=== PATIENT | female | born 1975 | race Caucasian/White ===

== ENCOUNTER 2019-09-24 08:48 | Emergency (ER) | payer MEDICAID ==
[2019-09-24] MEDS ORDERED: Sodium Chloride 0.9% 1,000 ML IV SCH (09:15)
[2019-09-24] MEDS ORDERED: Famotidine 20 MG/2 ML SDV IVPUSH ONE (09:16)
--- NOTE | 2019-09-24 09:20 | EDM.PDOC ---
<Michelle Lund - Last Filed: 09/24/19 10:44> ED HPI GENERAL MEDICAL PROBLEM - General Chief Complaint: Abdominal Pain Stated Complaint: STOMACH PAIN Time Seen by Provider: 09/24/19 09:03 Source of Information: Reports: Patient History Limitations: Reports: No Limitations - History of Present Illness INITIAL COMMENTS - FREE TEXT/NARRATIVE: Pt is a 44 year old female who presents with epigastric pain for the last week, as well as constipation and bright red blood in her stool. She has vomited "a couple times" in the last week but has been able to keep food and liquids down. She states that she fell about a month ago and injured her knee and has been taking ibuprofen 800mg QID since that time for the pain. She has been having intermittent heart burn for which she has been using Tums. Additionally, she has been having diffuculty with having bowel movements for which she took a Dulcolax yesterday. She states that she was able to have a "small hard" bowel movement yesterday, but she was concerned because there was bright red blood on the toilet paper when she wiped. She does have an external hemorrhoid that she is aware of. She has a family hx of colon cancer, so she is concerned about this. She had a screening colonoscopy at 39 years old and has an appt on Sunday with Madeline Melendez NP to establish care and order repeat screening. Denies hx of GI bleeds, black stools, and hematemesis. Upper Abdomen Pain Score (Numeric/FACES): 5 - Related Data Allergies Allergy/AdvReac Type Severity Reaction Status Date / Time No Known Allergies Allergy Verified 09/24/19 08:59 Home Meds: Home Meds . 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: Musculoskeletal History: Reports: Back Pain, Chronic Psychiatric History: Reports: Anxiety Endocrine/Metabolic History: Reports: Obesity/BMI 30+ Hematologic History: Reports: None Immunologic History: Reports: None Oncologic (Cancer) History: Reports: None Dermatologic History: Reports: None - Infectious Disease History Infectious Disease History: Reports: None - Past Surgical History Head Surgeries/Procedures: Reports: None Female Surgical History: Reports: Section Neurological Surgical History: Reports: Lumbar Spine Social & Family History - Tobacco Use Smoking Status *Q: Current Every Day Smoker Years of Tobacco use: 30 Packs/Tins Daily: 1 - Caffeine Use Caffeine Use: Reports: Coffee, Tea - Recreational Drug Use Recreational Drug Use: No ED ROS GENERAL - Review of Systems Review Of Systems: See Below Constitutional: Reports: No Symptoms. Denies: Fever, Chills HEENT: Reports: No Symptoms Respiratory: Reports: No Symptoms Cardiovascular: Reports: No Symptoms Endocrine: Reports: No Symptoms GI/Abdominal: Reports: Abdominal Pain, Bloody Stool, Constipation, Nausea, Vomiting, Other (heart burn). Denies: Black Stool, Hematemesis, Hematochezia, Melena : Reports: No Symptoms Musculoskeletal: Reports: No Symptoms Skin: Reports: No Symptoms Neurological: Reports: No Symptoms Psychiatric: Reports: No Symptoms Hematologic/Lymphatic: Reports: No Symptoms Immunologic: Reports: No Symptoms ED EXAM, GI/ABD - Physical Exam Exam: See Below Exam Limited By: No Limitations General Appearance: Alert, WD/WN, No Apparent Distress Head: Atraumatic, Normocephalic Respiratory/Chest: No Respiratory Distress, Lungs Clear, Normal Breath Sounds Cardiovascular: Normal Peripheral Pulses, Regular Rate, Rhythm, No Edema GI/Abdominal Exam: Normal Bowel Sounds, Soft, Tender (generalized throughout, but worse in the epigastrum). No: No Organomegaly, No Mass Neurological: Alert, Oriented, Normal Cognition Psychiatric: Normal Affect, Normal Mood Skin Exam: Warm, Dry, Intact Course - Vital Signs Last Recorded V/S: Last Vital Signs Temp 97 F 09/24/19 08:55 Pulse 94 09/24/19 08:55 Resp 16 09/24/19 08:55 BP 131/85 09/24/19 08:55 Pulse Ox 98 09/24/19 08:55 - Orders/Labs/Meds Orders: Active Orders 24 hr Category Date Time Status Influenza Vaccine Charge [RC] .DISCHARGE Care 09/24/19 09:01 Active Sodium Chloride 0.9% [Normal Saline] 1,000 ml Med 09/24/19 09:15 Active IV ASDIRECTED Medication Orders Sodium Chloride (Normal Saline) 1,000 mls @ 150 mls/hr IV ASDIRECTED JEAN-PIERRE Last Admin: 09/24/19 09:23 Dose: 150 mls/hr Labs: Laboratory Tests 09/24/19 09/24/19 09/24/19 Range/Units 09:25 09:25 09:25 WBC 6.87 (3.98-10.04) K/mm3 RBC 5.00 (3.98-5.22) M/mm3 Hgb 12.1 (11.2-15.7) gm/dl Hct 38.6 (34.1-44.9) % MCV 77.2 L (79.4-94.8) fl MCH 24.2 L (25.6-32.2) pg MCHC 31.3 L (32.2-35.5) g/dl RDW Std Deviation 53.9 H (36.4-46.3) fL Plt Count 373 H (182-369) K/mm3 MPV 9.2 L (9.4-12.3) fl Neut % (Auto) 52.6 (34.0-71.1) % Lymph % (Auto) 33.5 (19.3-51.7) % [place] % (Auto) 10.9 (4.7-12.5) % Eos % (Auto) 2.6 (0.7-5.8) Baso % (Auto) 0.4 (0.1-1.2) % Neut # (Auto) 3.61 (1.56-6.13) K/mm3 Lymph # (Auto) 2.30 (1.18-3.74) K/mm3 [place] # (Auto) 0.75 H (0.24-0.36) K/mm3 Eos # (Auto) 0.18 (0.04-0.36) K/mm3 Baso # (Auto) 0.03 (0.01-0.08) K/mm3 Sodium 140 (136-145) mEq/L Potassium 3.9 (3.5-5.1) mEq/L Chloride 104 (98-107) mEq/L Carbon Dioxide 26 (21-32) mEq/L Anion Gap 13.9 (5-15) BUN 14 (7-18) mg/dL Creatinine 0.7 (0.55-1.02) mg/dL Est Cr Clr Drug Dosing 91.32 mL/min Estimated GFR (MDRD) > 60 (>60) mL/min BUN/Creatinine Ratio 20.0 H (14-18) Glucose 103 (74-106) mg/dL Calcium 9.2 (8.5-10.1) mg/dL Total Bilirubin 0.3 (0.2-1.0) mg/dL AST 20 (15-37) U/L ALT 26 (14-59) U/L Alkaline Phosphatase 69 (46-116) U/L Total Protein 6.8 (6.4-8.2) g/dl Albumin 3.4 (3.4-5.0) g/dl Globulin 3.4 gm/dL Albumin/Globulin Ratio 1.0 (1-2) Lipase 95 (73-393) U/L Meds: Medications Generic Name Dose Route Start Last Admin Trade Name Freq PRN Reason Stop Dose Admin Sodium Chloride 1,000 mls @ 150 mls/hr 09/24/19 09:15 09/24/19 09:23 Normal Saline IV 150 mls/hr ASDIRECTED JEAN-PIERRE Administration Discontinued Medications Generic Name Dose Route Start Last Admin Trade Name Freq PRN Reason Stop Dose Admin Famotidine 20 mg 09/24/19 09:16 09/24/19 09:25 Pepcid IVPUSH 09/24/19 09:17 20 mg ONETIME ONE Administration Hydromorphone HCl 0.5 mg 09/24/19 09:30 09/24/19 09:50 Dilaudid IVPUSH 09/24/19 09:31 0.5 mg ONETIME ONE Administration Influenza Virus Vaccine 60 mcg 09/24/19 09:45 09/24/19 10:32 Fluzone Quad [id number] Syringe IM 09/24/19 09:46 60 mcg .ONCE ONE Administration Magnesium Citrate 296 ml 09/24/19 10:11 09/24/19 10:32 Citrate Of Magnesia PO 09/24/19 10:12 296 ml ONETIME ONE Administration Ondansetron HCl 4 mg 09/24/19 09:30 09/24/19 09:50 Zofran IVPUSH 09/24/19 09:31 4 mg ONETIME ONE Administration - Re-Assessments/Exams Free Text/Narrative Re-Assessment/Exam: 09/24/19 10:40 I ordered an IV with IVF, dilaudid, and zofran. I ordered a 2V abdomen xray to look for constipation and signs of obstruction, as well as labs including a cbc, cmp, and lipase. Free Text/Narrative Re-Assessment/Exam: 09/24/19 10:15 The patients labs are grossly unremarkable. Her xray shows a considerably amount of stool in the transverse and decending colon. No visible air-fluid levels or dilated loops of bowel are noted. She verbalized relief of pain and nausea with the dilaudid and zofran. I recommend that she stop the ibuprofen and start a daily omeprazole 20mg. I will also send her home with mag citrate for the constipation. She has an appointment to establish care with Madeline Melendez NP on Sunday. I encouraged her to keep this appointment to follow-up and definitely return if her symptoms fail to improve or worsen. Departure - Departure Time of Disposition: :11 Disposition: Home, Self-Care 01 Condition: Fair Clinical Impression: Gastritis, Constipation - Discharge Information *PRESCRIPTION DRUG MONITORING PROGRAM REVIEWED*: Not Applicable *COPY OF PRESCRIPTION DRUG MONITORING REPORT IN PATIENT KP: Not Applicable Instructions: Gastritis, Adult, [id number], Constipation, Adult Referrals: Jocelin Melendez NP [Ordering Only Provider] - Forms: ED Department Discharge Additional Instructions: You were seen in the emergency department today for abdominal pain. Your workup included blood work, as well as an abdomen xray. Your laboratory results were unremarkable. The abdomen xray showed a considerable amount of stool in colon. At this time we would recommend that you stop using ibuprofen and use tylenol as needed for pain; however, be sure not to exceed 4000 mg per day of tylenol. We also recommend that you start taking Prilosec 20 mg daily in the morning. This can be purchased over the counter. You have been provided a bottle of magnesium citirate for your constipation. We recommend that you take half that bottle when you get home and wait 4 hours for results. If this fails to produce a large bowel movement, take the second half of the bottle. This medication should result in a number of bowel movements, some of which may be loose. Start taking an over the counter Colace daily. You may also use Miralax as needed to acheive regular bowel movements. It is also important to ensure that you increase your fluid and fiber intake. Follow-up with your primary care provider as scheduled this Sunday. If your symptoms should worsen, please return to the ER. - My Orders Last 24 Hours: My Active Orders 09/24/19 09:01 Influenza Vaccine Charge [RC] .DISCHARGE - Assessment/Plan Last 24 Hours: My Active Orders 09/24/19 09:01 Influenza Vaccine Charge [RC] .DISCHARGE <Ean Welsh - Last Filed: 09/24/19 10:59> Course - Re-Assessments/Exams Free Text/Narrative Re-Assessment/Exam: 09/24/19 10:58 I have also examined and interviewed patient, reviewed labs and Xrays. I agree with hx, exam, findings and plan as documented by EDWARD Ragsdale.
[2019-09-24] MEDS ORDERED: Ondansetron 4 MG/2 ML SDV IVPUSH ONE (09:30)
[2019-09-24] MEDS ORDERED: HYDROmorphone 0.5 MG/0.5 ML Syringe IVPUSH ONE (09:30)
[2019-09-24] MEDS ORDERED: FLU Vacc QS2019-20(6MOS+)/PF 60 MCG/0.5 ML SYRINGE IM ONE (09:45)
[2019-09-24] MEDS ORDERED: Magnesium Citrate Solution 296 ML Bottle PO ONE (10:11)
--- NOTE | 2019-09-24 10:40 | CR ---
Abdomen: Supine and upright views of the abdomen were obtained. Comparison: No prior abdominal x-ray. Bowel gas pattern is normal. No abnormal calcifications or soft tissue abnormality is seen. Bony structures are unremarkable. No free air is seen. Impression: 1. Nothing acute is appreciated on two-view abdominal x-ray. Diagnostic code #1
== END 2019-09-24 10:40 | disposition home or self-care (01) ==
LOC: JD.ED 08:48
DX: K29.70 Gastritis, unspecified, without bleeding (principal); K59.00 Constipation, unspecified; E66.9 Obesity, unspecified; I11.0 Hypertensive heart disease with heart failure; I50.9 Heart failure, unspecified; F17.210 Nicotine dependence, cigarettes, uncomplicated; Z68.33 Body mass index [BMI] 33.0-33.9, adult; Z23 Encounter for immunization
CPT/HCPCS: 36415; 74019; 80053; 83690; 85025; 90471; 90686; 96361; 96374; 96375; 99284; A9270; J1170; J2405; J3490; J7040; 99283

== ENCOUNTER 2019-11-26 09:34 | Day surgery (SDC) | payer MEDICAID ==
[~2019-11-26 09:34] MED LIST: Albuterol 0.083% 2.5 MG/3 ML Neb Soln NEB PRN; Lactated Ringers 1,000 ML IV SCH; Lidocaine 1%/Sod Bicarbonate in NS 8.4% 1 ML Syringe IDERM PRN; Sodium Chloride 0.9% 10 ML Syringe FLUSH PRN
[2019-11-26] MEDS ORDERED: Lidocaine 1% 4 ML ONE (10:10)
[2019-11-26] MEDS ORDERED: Propofol 200 MG/20 ML SDV ONE ×4 (10:10→12:17)
--- NOTE | 2019-11-26 10:26 | PCM.PREANE ---
Preanesthetic Assessment - Procedure Proposed Procedure: EGD Colonoscopy - Anesthesia/Transfusion/Family Hx Anesthesia History: Prior Anesthesia Without Reaction Family History of Anesthesia Reaction: No - Review of Systems General: No Symptoms Pulmonary: Cough (Chronic cough, smoker 1ppd x 30 years) Cardiovascular: No Symptoms Gastrointestinal: No Symptoms Neurological: No Symptoms Other: Reports: None (Morbid Obesity BMI 42), Depression, Anxiety - Physical Assessment NPO Status Date: 11/25/19 NPO Status Time: 20:30 Vital Signs: Last Vital Signs Temp 36.8 C 11/26/19 09:45 Pulse 73 11/26/19 09:45 Resp 20 11/26/19 09:45 BP 120/87 11/26/19 09:45 Pulse Ox 96 11/26/19 09:45 Height: 1.68 m Weight: 111.584 kg ASA Class: 3 Mental Status: Alert & Oriented x3 Airway Class: Mallampati = 3 Dentition: Reports: Normal Dentition Thyro-Mental Finger Breadths: 3 Mouth Opening Finger Breadths: 3 ROM/Head Extension: Full Lungs: Clear to Auscultation, Normal Respiratory Effort Cardiovascular: Regular Rate, Regular Rhythm - Allergies Allergies/Adverse Reactions: Allergies Allergy/AdvReac Type Severity Reaction Status Date / Time gabapentin Allergy Confusion Verified 11/25/19 14:36 - Acknowledgements Anesthesia Type Planned: MAC Pt an Appropriate Candidate for the Planned Anesthesia: Yes Alternatives and Risks of Anesthesia Discussed w Pt/Guardian: Yes Pt/Guardian Understands and Agrees with Anesthesia Plan: Yes PreAnesthesia Questionnaire HEENT History: Reports: Impaired Vision Cardiovascular History: Reports: Heart Failure, Hypertension Respiratory History: Reports: None Gastrointestinal History: Reports: Chronic Constipation, Gastritis Genitourinary History: Reports: None 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, Musculoskeletal History: Reports: Arthritis, Back Pain, Chronic Neurological History: Reports: None Psychiatric History: Reports: Anxiety Endocrine/Metabolic History: Reports: Obesity/BMI 30+ Hematologic History: Reports: None Immunologic History: Reports: None Oncologic (Cancer) History: Reports: None Dermatologic History: Reports: None - Infectious Disease History Infectious Disease History: Reports: None - Past Surgical History Head Surgeries/Procedures: Reports: None HEENT Surgical History: Reports: None Cardiovascular Surgical History: Reports: None GI Surgical History: Reports: Colonoscopy, EGD Female Surgical History: Reports: Section Male Surgical History: Reports: None Neurological Surgical History: Reports: Lumbar Spine Oncologic Surgical History: Reports: None Dermatological Surgical History: Reports: None - SUBSTANCE USE Smoking Status *Q: Current Every Day Smoker Recreational Drug Use History: No - HOME MEDS Home Medications: Home Meds ALPRAZolam [Xanax] 0.25 mg PO BID PRN 11/25/19 [History] Lubiprostone [Amitiza] 24 mcg PO BID 11/25/19 [History] Pregabalin [Lyrica] 150 mg PO BID 11/25/19 [History] Sertraline HCl [Zoloft] 50 mg PO DAILY 11/25/19 [History] - CURRENT (IN HOUSE) MEDS Current Meds: Current Medications Albuterol (Proventil Neb Soln) 2.5 mg NEB ONETIME PRN PRN Reason: bronchodilation Lactated Ringer's (Ringers, Lactated) 1,000 mls @ 125 mls/hr IV ASDIRECTED JEAN-PIERRE Last Admin: 11/26/19 10:00 Dose: 125 mls/hr Lidocaine/Sodium Bicarbonate (Buffered Lidocaine 1% In Ns 8.4%) 0.25 ml IDERM ONETIME PRN PRN Reason: Prior to IV Start Last Admin: 11/26/19 09:59 Dose: 0.25 ml Sodium Chloride (Saline Flush) 10 ml FLUSH ASDIRECTED PRN PRN Reason: Keep Vein Open Discontinued Medications Lidocaine HCl (Xylocaine-Mpf 1%) Confirm Administered Dose 4 mls @ as directed .ROUTE .STK-MED ONE Stop: 11/26/19 10:11 Propofol (Diprivan 20 Ml) Confirm Administered Dose 200 mg .ROUTE .STK-MED ONE Stop: 11/26/19 10:11
[2019-11-26] MEDS ORDERED: Midazolam 1 MG/ML 2 ML SDV ONE (11:48)
[2019-11-26] MEDS ORDERED: fentaNYL 100 MCG/2 ML SDV ONE (11:53)
--- NOTE | 2019-11-26 12:40 | PCM48HPAN ---
Post Anesthesia Note - EVALUATION WITHIN 48HRS OF ANESTHETIC Vital Signs in Normal Range: Yes Patient Participated in Evaluation: Yes Respiratory Function Stable: Yes Airway Patent: Yes Cardiovascular Function Stable: Yes Hydration Status Stable: Yes Pain Control Satisfactory: Yes Nausea and Vomiting Control Satisfactory: Yes Mental Status Recovered: Yes Vital Signs: Last Vital Signs Temp 36.8 C 11/26/19 09:45 Pulse 73 11/26/19 09:45 Resp 20 11/26/19 09:45 BP 120/87 11/26/19 09:45 Pulse Ox 96 11/26/19 10:32
--- NOTE | 2019-11-26 12:44 | PCM.OPNOTE ---
- General Post-Op/Procedure Note Date of Surgery/Procedure: 11/26/19 Operative Procedure(s): EGD and colonoscopy Findings: 1. gastritis 2. Duodenitis 3. Ascending colon polyp 4. Sigmoid polyp x2 Pre Op Diagnosis: anemia Post-Op Diagnosis: same Anesthesia Technique: VON Primary Surgeon: Nia Rosenbaum Anesthesia Provider: Shayy Merlos Pathology: 1. Duodenal biopsy 2. Gastric antrum 3. Ascending colon polyp 4. Sigmoid polyp x2 Fluid Replacement, Intraop: 1,400 EBL in mLs: 0 Complications: none apparent Condition: Good
--- NOTE | 2019-11-26 12:51 | PCM.PRNOTE ---
- Free Text/Narrative Note: Operative Report Date of Procedure: November 26, 2019 Pre Op Diagnosis: Anemia Post-Op Diagnosis: Anemia Operative Procedures: 1. EGD with biopsy 2. Colonoscopy to the cecum with polypectomy Primary Surgeon: Nia Rosenbaum MD Anesthesia Provider: Shayy Merlos CRNA Anesthesia Technique: MAC IV Fluid Replacement, Intraop: 1400cc crystalloid Output, Urine Amount: 0cc EBL in mLs: 0cc Findings: 1. gastritis 2. Duodenitis 3. Ascending colon polyp 4. Sigmoid polyp x2 Specimens: 1. Duodenal biopsy 2. Gastric antrum 3. Ascending colon polyp 4. Sigmoid polyp x2 Drain/Tubes: None Indication: The patient is a 44-year-old lady who presented to the clinic with anemia. The patient was consented for a diagnostic EGD and colonoscopy. Risks of bleeding, and perforation were discussed, and the patient agreed to the risks and wished to proceed. Description of the procedure: The patient was taken back to the endoscopy suite, and placed in the left lateral decubitus position. Local anesthetic to the oropharynx was administered , and a bite block was placed. The patient was sedated with MAC anesthesia. The Olympus video endoscope was inserted into the oropharynx and guided under direct vision into the esophagus, stomach, and duodenum. The gastric antrum was inspected and cold biopsy forceps were used to take tissue samples for H. pylori. There was linear erythema in this area consistent with gastritis. The duodenal bulb and second portion of the duodenum showed some friability consistent with duodenitis. Biopsies were taken with cold biopsy forceps. The scope was withdrawn to the stomach and retroflexed. There was bilious fluid present in the stomach, which was aspirated. No erosions or ulcers were noted. The scope was withdrawn to the esophagus. No Barretts esophagus changes were noted. The endoscope was then withdrawn Next, anorectal examination was performed. No lesions, masses or hemorrhoids were noted externally or on palpation. The scope was placed into the rectum and advanced to cecum. Upon reaching the cecum, and the patients cecum was entered. There was a normal tortuosity of the colon. The ileocecal valve was well visualized and the appendiceal orifice identified. At this point, the scope was slowly withdrawn, paying attention to the mucosa. The patient had adequate bowel prep, 75-80% of the mucosa was visible which improved with washing and suctioning. 3 small flat polyps were noted in the colon, one in the ascending colon and 2 in the sigmoid colon. These were removed with cold biopsy forceps. In the rectum, scope was retroflexed and some normal hemorrhoidal tissue was noted. The scope was placed back in the lumen and excess air was aspirated. The scope was removed. The patient tolerated the procedure very well. Complications: None apparent Condition: The patient was transported to PACU in stable condition. Nia Rosenbaum MD General Surgery
== END 2019-11-26 13:18 | disposition home or self-care (01) ==
LOC: JD.SDS 09:34
PROVIDERS: ATTEND Surgery
DX: D64.9 Anemia, unspecified (principal); D12.2 Benign neoplasm of ascending colon; D12.5 Benign neoplasm of sigmoid colon; K64.9 Unspecified hemorrhoids; K31.89 Other diseases of stomach and duodenum; K29.80 Duodenitis without bleeding; I11.0 Hypertensive heart disease with heart failure; I50.9 Heart failure, unspecified; F41.9 Anxiety disorder, unspecified; F32.9 Major depressive disorder, single episode, unspecified; M19.90 Unspecified osteoarthritis, unspecified site; M17.0 Bilateral primary osteoarthritis of knee; M47.816 Spondylosis without myelopathy or radiculopathy, lumbar region; F17.210 Nicotine dependence, cigarettes, uncomplicated; E66.01 Morbid (severe) obesity due to excess calories; Z68.41 Body mass index [BMI] 40.0-44.9, adult; Z79.899 Other long term (current) drug therapy; Z88.8 Allergy status to other drugs, medicaments and biological substances; Z83.71 Family history of colonic polyps; Z86.010 Personal history of colon polyps
CPT/HCPCS: 43239; 45380; 94640; J2001; J2250; J2704; J3010; J7120; 00813

== ENCOUNTER 2019-12-16 12:28 | Emergency (ER) | payer MEDICAID ==
--- NOTE | 2019-12-16 13:00 | EDM.PDOC ---
ED HPI GENERAL MEDICAL PROBLEM - General Chief Complaint: Back Pain or Injury Stated Complaint: BACK INJURY/SLIPPED ON ICE 2WEEKS AGO Time Seen by Provider: 12/16/19 12:52 - History of Present Illness INITIAL COMMENTS - FREE TEXT/NARRATIVE: 44-year-old female presents the emergency room with low back pain. 2 weeks ago the patient fell getting out of her truck she slipped on some ice and her right hip hit the step and then she fell to the concrete landing mostly on her right side. She is ambulatory just has back pain she denies any pain going down her legs she has no loss of bowel or bladder control.. She has no numbness or tingling in her extremities. She does have sciatica that bothers her from time to time but this is much different. Patient denies any abdominal pain no nausea vomiting or change in bowel habits. Denies any burning or frequency with urination Lower Back Pain Score (Numeric/FACES): 8 - Related Data Allergies Allergy/AdvReac Type Severity Reaction Status Date / Time gabapentin Allergy Confusion Verified 12/16/19 12:45 Home Meds: Home Meds ALPRAZolam [Xanax] 0.25 mg PO BID PRN 11/25/19 [History] Lubiprostone [Amitiza] 24 mcg PO BID 11/25/19 [History] Pregabalin [Lyrica] 150 mg PO BID 11/25/19 [History] Sertraline HCl [Zoloft] 50 mg PO DAILY 11/25/19 [History] Cyclobenzaprine [Flexeril] 10 mg PO ASDIRECTED #15 tab 12/16/19 [Rx] Naproxen 500 mg PO Q12H #30 tablet 12/16/19 [Rx] Past Medical History HEENT History: Reports: Impaired Vision Cardiovascular History: Reports: Heart Failure, Hypertension Respiratory History: Reports: None Gastrointestinal History: Reports: Chronic Constipation, Gastritis Genitourinary History: Reports: None 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: Musculoskeletal History: Reports: Arthritis, Back Pain, Chronic Neurological History: Reports: None Psychiatric History: Reports: Anxiety, Dementia Endocrine/Metabolic History: Reports: Obesity/BMI 30+ Hematologic History: Reports: None Immunologic History: Reports: None Oncologic (Cancer) History: Reports: None Dermatologic History: Reports: None - Infectious Disease History Infectious Disease History: Reports: None - Past Surgical History Head Surgeries/Procedures: Reports: None HEENT Surgical History: Reports: None Cardiovascular Surgical History: Reports: None GI Surgical History: Reports: Colonoscopy, EGD Female Surgical History: Reports: Section Neurological Surgical History: Reports: Lumbar Spine Oncologic Surgical History: Reports: None Dermatological Surgical History: Reports: None Social & Family History - Family History Respiratory: Reports: Other (See Below) Other Respiratory Family Hisory: emphysema GI: Reports: Cirrhosis Endocrine/Metabolic: Reports: Diabetes, type II Oncologic: Reports: Colon - Tobacco Use Smoking Status *Q: Current Every Day Smoker Years of Tobacco use: 30 Packs/Tins Daily: 0.5 - Caffeine Use Caffeine Use: Reports: Coffee, Soda - Recreational Drug Use Recreational Drug Use: No ED ROS GENERAL - Review of Systems Review Of Systems: See Below Constitutional: Reports: No Symptoms HEENT: Reports: No Symptoms Respiratory: Reports: No Symptoms Cardiovascular: Reports: No Symptoms Endocrine: Reports: No Symptoms GI/Abdominal: Reports: No Symptoms : Reports: No Symptoms Musculoskeletal: Reports: Back Pain. Denies: Leg Pain ED EXAM,LOWER BACK PAIN/INJURY - Physical Exam Exam: See Below Exam Limited By: No Limitations General Appearance: Alert, No Apparent Distress, Other (She moves slow because of her back pain) Head: Atraumatic, Normocephalic Neck: Normal Inspection, Supple, Non-Tender, Full Range of Motion. No: Lymphadenopathy (L), Lymphadenopathy (R) Respiratory/Chest: No Respiratory Distress, Lungs Clear, Normal Breath Sounds Cardiovascular: Regular Rate, Rhythm, No Edema, No Murmur GI/Abdominal: Normal Bowel Sounds, Soft, Non-Tender Back Exam: Normal Inspection, Muscle Spasm (Is worse over the right), Vertebral Tenderness, Other (Right leg raise is entirely normal bilaterally) Neurological: Alert, Normal Mood/Affect Course - Vital Signs Last Recorded V/S: Last Vital Signs Temp 36.5 C 12/16/19 12:42 Pulse 98 12/16/19 12:42 Resp 20 12/16/19 12:42 BP 124/94 H 12/16/19 12:42 Pulse Ox 100 12/16/19 12:42 - Orders/Labs/Meds Orders: Active Orders 24 hr Category Date Time Status Lumbar Spine 2 or 3V [CR] Stat Exams 12/16/19 13:00 Taken Pelvis 1V or 2V [CR] Stat Exams 12/16/19 13:00 Taken Meds: Medications Discontinued Medications Generic Name Dose Route Start Last Admin Trade Name Madonna PRN Reason Stop Dose Admin Ketorolac Tromethamine 30 mg 12/16/19 13:18 12/16/19 14:00 Toradol IM 12/16/19 13:19 30 mg ONETIME ONE Administration - Re-Assessments/Exams Free Text/Narrative Re-Assessment/Exam: 12/16/19 15:34 Patient had some improvement not complete with the Toradol she is able to move around little easier still has a hard time standing up completely straight. But doing better x-rays pelvis and lumbar back are negative for acute fracture or change. We will discharge on Naprosyn and Flexeril Departure - Departure Time of Disposition: 15:37 Disposition: Home, Self-Care 01 Clinical Impression: Low back strain - Discharge Information Prescriptions: Cyclobenzaprine [Flexeril] 10 mg PO ASDIRECTED #15 tab Naproxen 500 mg PO Q12H #30 tablet Referrals: Jocelin Melendez NP [Primary Care Provider] - Forms: ED Department Discharge Additional Instructions: Return to the emergency room with any questions problems or worsening symptoms. Take the medication as we discussed, both the Flexeril and the naproxen. Follow-up with your regular provider at the end of this week. Sepsis Event Note - Evaluation Sepsis Screening Result: No Definite Risk - Focused Exam Vital Signs: Vital Signs Temp Pulse Resp BP Pulse Ox 12/16/19 12:42 36.5 C 98 20 124/94 H 100 Date Exam was Performed: 12/16/19 Time Exam was Performed: 15:38 - My Orders Last 24 Hours: My Active Orders 12/16/19 13:00 Lumbar Spine 2 or 3V [CR] Stat Pelvis 1V or 2V [CR] Stat - Assessment/Plan Last 24 Hours: My Active Orders 12/16/19 13:00 Lumbar Spine 2 or 3V [CR] Stat Pelvis 1V or 2V [CR] Stat
[2019-12-16] MEDS ORDERED: Ketorolac 30 MG/ML SDV IM ONE (13:18)
--- NOTE | 2019-12-17 07:38 | CR ---
Lumbar spine: AP, lateral and coned-down lateral views centered to the lumbosacral junction were obtained. Comparison: No previous lumbar spine imaging. Minimal disc space narrowing at L4-L5. Other disc spaces are maintained. Minimal scattered endplate osteophytes are seen. Pedicles are intact. Visualized transverse and spinous processes are intact. Sacroiliac joints appear unremarkable. Impression: 1. Slight degenerative change as noted above. 2. Nothing acute is appreciated on three-view lumbar spine study. Diagnostic code #2 This report was dictated in [place] Standard Time
--- NOTE | 2019-12-17 07:38 | CR ---
Pelvis: AP view of the pelvis was obtained. Comparison: Pelvis exam obtained during abdominal x-ray of 09/24/19. Joint spaces within both hips are maintained. Sacroiliac joints appear within normal limits. No fracture or other bony abnormality is identified. Impression: 1. No abnormality is identified on AP pelvis exam. Diagnostic code #1 This report was dictated in [place] Standard Time
== END 2019-12-16 16:00 | disposition home or self-care (01) ==
LOC: JD.ED 12:28
DX: S39.012A Strain of muscle, fascia and tendon of lower back, initial encounter (principal); I11.0 Hypertensive heart disease with heart failure; I50.9 Heart failure, unspecified; F41.9 Anxiety disorder, unspecified; F03.90 Unspecified dementia, unspecified severity, without behavioral disturbance, psychotic disturbance, mood disturbance, and anxiety; E66.9 Obesity, unspecified; F17.210 Nicotine dependence, cigarettes, uncomplicated; Z68.41 Body mass index [BMI] 40.0-44.9, adult; Z79.899 Other long term (current) drug therapy; Z88.8 Allergy status to other drugs, medicaments and biological substances; W00.0XXA Fall on same level due to ice and snow, initial encounter
CPT/HCPCS: 72100; 72170; 96372; 99283; J1885

== ENCOUNTER 2019-12-23 12:52 | Emergency (ER) | payer MEDICAID ==
--- NOTE | 2019-12-23 13:22 | EDM.PDOC ---
ED HPI GENERAL MEDICAL PROBLEM - General Chief Complaint: Respiratory Problem Stated Complaint: RESPIRATORY ISSUES Time Seen by Provider: 12/23/19 13:03 Source of Information: Reports: Patient History Limitations: Reports: No Limitations - History of Present Illness INITIAL COMMENTS - FREE TEXT/NARRATIVE: Patient is a 44-year-old female who presents with complaints of cough, congestion, chest tightness, and fever for the last 3 days. She states that she is coughing so hard that it is causing her to have back pain. She denies any chronic lung conditions, however she is a smoker. 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 Denies any nausea, vomiting , or diarrhea. Chest Pain Score (Numeric/FACES): 4 - Related Data Allergies Allergy/AdvReac Type Severity Reaction Status Date / Time gabapentin Allergy Confusion Verified 12/23/19 13:04 Home Meds: Home Meds ALPRAZolam [Xanax] 0.25 mg PO BID PRN 11/25/19 [History] Lubiprostone [Amitiza] 24 mcg PO BID 11/25/19 [History] Pregabalin [Lyrica] 150 mg PO BID 11/25/19 [History] Sertraline HCl [Zoloft] 50 mg PO DAILY 11/25/19 [History] Albuterol [Ventolin HFA] 2 puff .XX Q4H PRN #1 inhaler 12/23/19 [Rx] Codeine/Promethazine [Phenergan with Codeine] 5 ml PO Q4HR PRN #90 cup 12/23/19 [Rx] methylPREDNISolone [Medrol Dose Pack] 4 mg PO ASDIRECTED #1 dospk 12/23/19 [Rx] Past Medical History HEENT History: Reports: Impaired Vision Cardiovascular History: Reports: Heart Failure, Hypertension Respiratory History: Reports: None Gastrointestinal History: Reports: Chronic Constipation, Gastritis Genitourinary History: Reports: None 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, Musculoskeletal History: Reports: Arthritis, Back Pain, Chronic Neurological History: Reports: None Psychiatric History: Reports: Anxiety Endocrine/Metabolic History: Reports: Obesity/BMI 30+ Hematologic History: Reports: None Immunologic History: Reports: None Oncologic (Cancer) History: Reports: None Dermatologic History: Reports: None - Infectious Disease History Infectious Disease History: Reports: None - Past Surgical History Head Surgeries/Procedures: Reports: None HEENT Surgical History: Reports: None Cardiovascular Surgical History: Reports: None GI Surgical History: Reports: Colonoscopy, EGD Female Surgical History: Reports: Section Neurological Surgical History: Reports: Lumbar Spine Oncologic Surgical History: Reports: None Dermatological Surgical History: Reports: None Social & Family History - Family History Family Medical History: Noncontributory Respiratory: Reports: Other (See Below) Other Respiratory Family Hisory: emphysema GI: Reports: Cirrhosis Endocrine/Metabolic: Reports: Diabetes, type II Oncologic: Reports: Colon - Tobacco Use Smoking Status *Q: Current Every Day Smoker Years of Tobacco use: 30 Packs/Tins Daily: 0.3 Second Hand Smoke Exposure: No - Caffeine Use Caffeine Use: Reports: Coffee, Tea - Recreational Drug Use Recreational Drug Use: No ED ROS GENERAL - Review of Systems Review Of Systems: Comprehensive ROS is negative, except as noted in HPI. ED EXAM, GENERAL - Physical Exam Exam: See Below Exam Limited By: No Limitations General Appearance: Alert, WD/WN, No Apparent Distress Throat/Mouth: Normal Inspection, Normal Lips, Normal Teeth, Normal Gums, Normal Oropharynx, Normal Voice, No Airway Compromise Neck: Normal Inspection, Supple, Non-Tender, Full Range of Motion Respiratory/Chest: No Respiratory Distress, Lungs Clear, Normal Breath Sounds, No Accessory Muscle Use, Chest Non-Tender, Other (Deep, paroxysmal cough) Cardiovascular: Normal Peripheral Pulses, Regular Rate, Rhythm, No Edema, No Gallop, No JVD, No Murmur, No Rub GI/Abdominal: Normal Bowel Sounds, Soft, Non-Tender, No Organomegaly, No Distention, No Abnormal Bruit, No Mass Neurological: Alert, Oriented, CN II-XII Intact, Normal Cognition, Normal Gait, Normal Reflexes, No Motor/Sensory Deficits Psychiatric: Normal Affect, Normal Mood Skin Exam: Warm, Dry, Intact, Normal Color, No Rash Course - Vital Signs Last Recorded V/S: Last Vital Signs Temp 98.1 F 12/23/19 13:01 Pulse 98 12/23/19 13:01 Resp 20 12/23/19 13:01 BP 156/95 H 12/23/19 13:01 Pulse Ox 97 12/23/19 13:01 - Orders/Labs/Meds Orders: Active Orders 24 hr Category Date Time Status RT Aerosol Therapy [RC] ASDIRECTED Care 12/23/19 14:04 Ordered Albuterol/Ipratropium [DuoNeb 3.0-0.5 MG/3 ML] Med 12/23/19 14:04 Once 3 ml NEB ONETIME ONE Departure - Departure Time of Disposition: 14:04 Disposition: Home, Self-Care 01 Condition: Fair Clinical Impression: Bronchitis - Discharge Information *PRESCRIPTION DRUG MONITORING PROGRAM REVIEWED*: No *COPY OF PRESCRIPTION DRUG MONITORING REPORT IN PATIENT KP: No Prescriptions: Codeine/Promethazine [Phenergan with Codeine] 5 ml PO Q4HR PRN #90 cup PRN Reason: Cough Albuterol [Ventolin HFA] 2 puff .XX Q4H PRN #1 inhaler PRN Reason: Cough methylPREDNISolone [Medrol Dose Pack] 4 mg PO ASDIRECTED #1 dospk Instructions: Acute Bronchitis, Adult, [id number] Referrals: Jocelin Melendez NP [Primary Care Provider] - Forms: ED Department Discharge Additional Instructions: You were seen in the emergency department today for cough and fever. Your influenza screen was negative. Chest x-ray did not show any signs of pneumonia. It is likely that you are suffering from a viral bronchitis. Prescriptions have been sent to [facility] for a Medrol dose pack, albuterol inhaler, and Phenergan with codeine cough syrup. Take these medications as prescribed. If you should experience any worsening symptoms, please not hesitate to return to the emergency department. Sepsis Event Note - Evaluation Sepsis Screening Result: No Definite Risk - Focused Exam Vital Signs: Vital Signs Temp Pulse Resp BP Pulse Ox 12/23/19 13:01 98.1 F 98 20 156/95 H 97 Date Exam was Performed: 12/23/19 Time Exam was Performed: 14:04 - My Orders Last 24 Hours: My Active Orders 12/23/19 14:04 RT Aerosol Therapy [RC] ASDIRECTED Albuterol/Ipratropium [DuoNeb 3.0-0.5 MG/3 ML] 3 ml NEB ONETIME ONE - Assessment/Plan Last 24 Hours: My Active Orders 12/23/19 14:04 RT Aerosol Therapy [RC] ASDIRECTED Albuterol/Ipratropium [DuoNeb 3.0-0.5 MG/3 ML] 3 ml NEB ONETIME ONE
--- NOTE | 2019-12-23 13:45 | CR ---
Chest: 2 views of the chest were obtained. Comparison: No prior chest x-ray. Heart size and mediastinum are normal. Lungs are clear. Bony structures appear within normal limits for the patient's age. Impression: 1. Nothing acute is appreciated on 2 view chest x-ray. Diagnostic code #1 This report was dictated in [place] Standard Time
[2019-12-23] MEDS ORDERED: Albuterol/Ipratropium 3.0-0.5 MG/3 ML Neb Soln NEB ONE (14:04)
== END 2019-12-23 14:26 | disposition home or self-care (01) ==
LOC: JD.ED 12:52
DX: J40 Bronchitis, not specified as acute or chronic (principal); I11.0 Hypertensive heart disease with heart failure; I50.9 Heart failure, unspecified; F41.9 Anxiety disorder, unspecified; K59.09 Other constipation; M19.90 Unspecified osteoarthritis, unspecified site; F17.210 Nicotine dependence, cigarettes, uncomplicated; E66.9 Obesity, unspecified; Z68.41 Body mass index [BMI] 40.0-44.9, adult; Z88.8 Allergy status to other drugs, medicaments and biological substances; Z79.899 Other long term (current) drug therapy; Z79.52 Long term (current) use of systemic steroids
CPT/HCPCS: 71046; 71046-26; 87804; 94640; 99283; 99285-25; J7620-GY

== ENCOUNTER 2020-01-16 09:02 | Emergency (ER) | payer MEDICAID ==
[2020-01-16] MEDS ORDERED: Albuterol/Ipratropium 3.0-0.5 MG/3 ML Neb Soln NEB ONE (11:09)
[2020-01-16] MEDS ORDERED: Sodium Chloride 0.9% 10 ML Syringe FLUSH PRN (11:09)
[2020-01-16] MEDS ORDERED: Ketorolac 30 MG/ML SDV IVPUSH ONE (11:09)
--- NOTE | 2020-01-16 11:46 | EDM.PDOC ---
ED HPI GENERAL MEDICAL PROBLEM - General Chief Complaint: Respiratory Problem Stated Complaint: RESPIRATORY ISSUES Time Seen by Provider: 01/16/20 11:00 Source of Information: Reports: Patient, RN Notes Reviewed History Limitations: Reports: No Limitations - History of Present Illness INITIAL COMMENTS - FREE TEXT/NARRATIVE: Patient is a 44-year-old female who presents to the ED for the evaluation of ongoing respiratory symptoms. The patient states she was evaluated in this ER roughly 1-1/2 weeks ago, and was given some nebulizers, a Medrol Dosepak and some cough medicine. Patient states that she is out of the nebulizers at this time, and still having issues with her breathing, she states that it is very hard to catch her breath at times, and she is still coughing quite a bit. She notes she is getting up some brown/yellow/green sputum. Her voice is very hoarse due to the coughing. She feels very lethargic. She does not admit to any fevers at home, but does states she has felt hot and cold. The patient was concerned last night as well as she was talking with a friend at home, when her left arm seemed to have spasmed, and her hand crunched up into a ball she is not able to move it for a brief period of time, then went back to normal, and then again spasmed in her hand crunched into the ball. She noted a little bit of shooting pain up her left arm with this, that seem to shoot up into her left side of her neck as well. Patient states she has had a mild headache, mainly in the back of her head for quite some time due to the coughing as well. States she is eating and drinking okay, but does have a somewhat decreased appetite. Her primary care provider is Jocelin Melendez, and states she cannot get into [facility] for at least 1 month as she is quite busy. Chest Pain Score (Numeric/FACES): 6 - Related Data Allergies Allergy/AdvReac Type Severity Reaction Status Date / Time gabapentin Allergy Confusion Verified 01/16/20 09:24 Home Meds: Home Meds ALPRAZolam [Xanax] 0.25 mg PO BID PRN 11/25/19 [History] Lubiprostone [Amitiza] 24 mcg PO BID 11/25/19 [History] Pregabalin [Lyrica] 150 mg PO BID 11/25/19 [History] Sertraline HCl [Zoloft] 50 mg PO DAILY 11/25/19 [History] Albuterol [Ventolin HFA] 2 puff .XX Q4H PRN #1 inhaler 12/23/19 [Rx] Albuterol/Ipratropium [DuoNeb 3.0-0.5 MG/3 ML] 3 ml NEB QID PRN #1 box 01/16/20 [Rx] Codeine/Promethazine [Phenergan with Codeine] 5 ml PO Q4HR PRN #90 cup 01/16/20 [Rx] Cyclobenzaprine [Flexeril] 10 mg PO TID #90 tab 01/16/20 [Rx] Naproxen [Naprosyn] 500 mg PO Q12HR #60 tab 01/16/20 [Rx] Past Medical History HEENT History: Reports: Impaired Vision Cardiovascular History: Reports: Heart Failure, Hypertension Respiratory History: Reports: Asthma, Bronchitis, Recurrent Gastrointestinal History: Reports: Chronic Constipation, Gastritis 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: Musculoskeletal History: Reports: Arthritis, Back Pain, Chronic Psychiatric History: Reports: Anxiety Endocrine/Metabolic History: Reports: Obesity/BMI 30+ - Past Surgical History GI Surgical History: Reports: Colonoscopy, EGD Female Surgical History: Reports: Section Neurological Surgical History: Reports: Lumbar Spine Social & Family History - Family History Family Medical History: Noncontributory Respiratory: Reports: Other (See Below) Other Respiratory Family Hisory: emphysema GI: Reports: Cirrhosis Endocrine/Metabolic: Reports: Diabetes, type II Oncologic: Reports: Colon - Tobacco Use Smoking Status *Q: Current Every Day Smoker Years of Tobacco use: 30 Packs/Tins Daily: 0.2 Smoking Cessation Information Provided To Patient: Patient Refused - Caffeine Use Caffeine Use: Reports: Coffee - Recreational Drug Use Recreational Drug Use: No ED ROS GENERAL - Review of Systems Review Of Systems: See Below Constitutional: Reports: Chills (hot/cold flashes), Fatigue (generalized), Decreased Appetite. Denies: Weight Loss HEENT: Reports: Throat Pain (with voice hoarseness) Respiratory: Reports: Shortness of Breath, Cough, Sputum Cardiovascular: Reports: Chest Pain (chest discomfort). Denies: Edema, Orthopnea GI/Abdominal: Denies: Abdominal Pain, Constipation, Diarrhea, Nausea, Vomiting : Denies: Dysuria, Frequency, Urgency Musculoskeletal: Reports: Neck Pain (L neck), Arm Pain (L arm that radiates into L neck) Neurological: Denies: Confusion, Headache, Numbness, Paresthesia, Pre-Existing Deficit, Tingling, Trouble Speaking, Difficulty Walking ED EXAM, GENERAL - Physical Exam Exam: See Below Exam Limited By: No Limitations General Appearance: Alert, WD/WN, No Apparent Distress Eye Exam: Bilateral Eye: EOMI, Normal Inspection, PERRL Ears: Normal External Exam, Normal Canal, Hearing Grossly Normal, Normal TMs Nose: Normal Inspection Throat/Mouth: Normal Inspection, Normal Lips, Normal Teeth, Normal Gums, Normal Oropharynx, Normal Voice, No Airway Compromise Head: Atraumatic, Normocephalic Neck: Normal Inspection, Supple, Full Range of Motion, Tender Lateral (in posterior neck w palpation down trapezius) Respiratory/Chest: No Respiratory Distress, Lungs Clear, Normal Breath Sounds, No Accessory Muscle Use, Chest Non-Tender Cardiovascular: Normal Peripheral Pulses, Regular Rate, Rhythm, No Edema, No Murmur Peripheral Pulses: 3+: Radial (L), Radial (R) GI/Abdominal: Normal Bowel Sounds, Soft, Non-Tender, No Distention, No Mass Extremities: Normal Inspection, Normal Capillary Refill Neurological: Alert, Oriented, Normal Cognition, No Motor/Sensory Deficits Psychiatric: Normal Affect, Normal Mood Skin Exam: Warm, Dry, Intact, Normal Color, No Rash Course - Vital Signs Last Recorded V/S: Last Vital Signs Temp 97.0 F 01/16/20 09:19 Pulse 88 01/16/20 13:25 Resp 24 H 01/16/20 13:25 BP 124/83 01/16/20 09:19 Pulse Ox 96 01/16/20 13:25 - Orders/Labs/Meds Orders: Active Orders 24 hr Category Date Time Status Peripheral IV Care [RC] . DIRECTED Care 01/16/20 11:09 Active RT Aerosol Therapy [RC] ASDIRECTED Care 01/16/20 11:09 Active Chest 2V [CR] Stat Exams 01/16/20 11:08 Taken PRO B-TYPE NATRIUR PEPT,BNPPRO [CHEM] Stat Lab 01/16/20 11:45 Received Sodium Chloride 0.9% [Saline Flush] Med 01/16/20 11:09 Active 10 ml FLUSH ASDIRECTED PRN Peripheral IV Insertion Adult [OM.PC] Stat Oth 01/16/20 11:09 Ordered Medication Orders Sodium Chloride (Saline Flush) 10 ml FLUSH ASDIRECTED PRN PRN Reason: Keep Vein Open Last Admin: 01/16/20 12:59 Dose: 10 ml Labs: Laboratory Tests 01/16/20 01/16/20 Range/Units 11:45 11:45 WBC 5.74 (3.98-10.04) K/mm3 RBC 4.67 (3.98-5.22) M/mm3 Hgb 12.6 (11.2-15.7) gm/dl Hct 39.9 (34.1-44.9) % MCV 85.4 D (79.4-94.8) fl MCH 27.0 (25.6-32.2) pg MCHC 31.6 L (32.2-35.5) g/dl RDW Std Deviation 56.1 H (36.4-46.3) fL Plt Count 290 D (182-369) K/mm3 MPV 10.3 (9.4-12.3) fl Neutrophils % (Manual) 48 (40-60) % Band Neutrophils % 0 (0-10) % Lymphocytes % (Manual) 39 (20-40) % Atypical Lymphs % 0 % Monocytes % (Manual) 7 (2-10) % Eosinophils % (Manual) 4 (0.7-5.8) % Basophils % (Manual) 2 H (0.1-1.2) Platelet Estimate Adequate RBC Morph Comment Normal Sodium 140 (136-145) mEq/L Potassium 3.5 (3.5-5.1) mEq/L Chloride 105 (98-107) mEq/L Carbon Dioxide 26 (21-32) mEq/L Anion Gap 12.5 (5-15) BUN 10 (7-18) mg/dL Creatinine 0.5 L (0.55-1.02) mg/dL Est Cr Clr Drug Dosing 133.01 mL/min Estimated GFR (MDRD) > 60 (>60) mL/min BUN/Creatinine Ratio 20.0 H (14-18) Glucose 94 (74-106) mg/dL Calcium 8.7 (8.5-10.1) mg/dL Total Bilirubin 0.2 (0.2-1.0) mg/dL AST 14 L (15-37) U/L ALT 22 (14-59) U/L Alkaline Phosphatase 63 (46-116) U/L Total Protein 6.6 (6.4-8.2) g/dl Albumin 3.3 L (3.4-5.0) g/dl Globulin 3.3 gm/dL Albumin/Globulin Ratio 1.0 (1-2) Meds: Medications Generic Name Dose Route Start Last Admin Trade Name Freq PRN Reason Stop Dose Admin Sodium Chloride 10 ml 01/16/20 11:09 01/16/20 12:59 Saline Flush FLUSH 10 ml ASDIRECTED PRN Administration Keep Vein Open Discontinued Medications Generic Name Dose Route Start Last Admin Trade Name Freq PRN Reason Stop Dose Admin Albuterol/Ipratropium 3 ml 01/16/20 11:09 01/16/20 11:50 Duoneb 3.0-0.5 Mg/3 Ml NEB 01/16/20 11:10 3 ml ONETIME ONE Administration Ketorolac Tromethamine 30 mg 01/16/20 11:09 01/16/20 11:59 Toradol IVPUSH 01/16/20 11:10 30 mg ONETIME ONE Administration - Re-Assessments/Exams Free Text/Narrative Re-Assessment/Exam: 01/16/20 11:48 Patient presents to the ED for evaluation of her ongoing respiratory symptoms. I will repeat CBC, CMP, and check a BNP as she states she has had issues with heart failure in the past. A chest x-ray, give her a DuoNeb, try some Toradol and give her some IV fluids see if this does not help. 01/16/20 13:14 Labs show no focal abnormalities at this time, I suspect the BNP will also not be an issue. At this time the patient will be discharged home with general recommendations, some nebulizers with strict instructions to do this 4 times a day over the weekend, then taper as needed beginning the week on Sunday. Departure - Departure Time of Disposition: 13:14 Disposition: Home, Self-Care 01 Condition: Fair Clinical Impression: Bronchitis, Muscle spasm - Discharge Information *PRESCRIPTION DRUG MONITORING PROGRAM REVIEWED*: Yes *COPY OF PRESCRIPTION DRUG MONITORING REPORT IN PATIENT KP: No Prescriptions: Codeine/Promethazine [Phenergan with Codeine] 5 ml PO Q4HR PRN #90 cup PRN Reason: Cough Naproxen [Naprosyn] 500 mg PO Q12HR #60 tab Albuterol/Ipratropium [DuoNeb 3.0-0.5 MG/3 ML] 3 ml NEB QID PRN #1 box PRN Reason: sob/wheezing Cyclobenzaprine [Flexeril] 10 mg PO TID #90 tab Instructions: Steps to Quit Smoking, [id number], Acute Bronchitis, Adult, [id number] Referrals: Jocelin Melendez NP [Primary Care Provider] - Forms: ED Department Discharge Additional Instructions: You were evaluated in the ER today regarding your ongoing respiratory symptoms and left arm pain. You do not have pneumonia at today's visit, and your laboratory evaluation was within normal limits. I suspect your arm pain/spasm was due to your ongoing cough from your recent illness. You were given a box of nebulizers to use, please use this 4 times a day for the next 3 days, and then on Sunday you may taper this to 2 times a day for 2 days, and then so forth until you need this on a more as needed basis. You were also given a refill of the cough medicine to help your body recover from the coughing. You were given a refill on your prescription of Flexeril and Naprosyn, until you can be seen by your primary care provider. You will need to schedule an appointment to see her see you can get these refilled after this. Please take this as previously prescribed for ongoing chronic symptoms. Please return to the ER at any time if your symptoms change or worsen. Sepsis Event Note - Evaluation Sepsis Screening Result: Possible Sepsis Risk - Focused Exam Vital Signs: Vital Signs Temp Pulse Resp BP Pulse Ox Pulse Ox 01/16/20 13:25 88 24 H 96 01/16/20 11:09 100 01/16/20 09:19 97.0 F 86 24 H 124/83 99 Date Exam was Performed: 01/16/20 Time Exam was Performed: 13:42 - My Orders Last 24 Hours: My Active Orders 01/16/20 11:08 Chest 2V [CR] Stat 01/16/20 11:09 Peripheral IV Care [RC] . DIRECTED RT Aerosol Therapy [RC] ASDIRECTED Sodium Chloride 0.9% [Saline Flush] 10 ml FLUSH ASDIRECTED PRN Peripheral IV Insertion Adult [OM.PC] Stat 01/16/20 11:45 PRO B-TYPE NATRIUR PEPT,BNPPRO [CHEM] Stat - Assessment/Plan Last 24 Hours: My Active Orders 01/16/20 11:08 Chest 2V [CR] Stat 01/16/20 11:09 Peripheral IV Care [RC] . DIRECTED RT Aerosol Therapy [RC] ASDIRECTED Sodium Chloride 0.9% [Saline Flush] 10 ml FLUSH ASDIRECTED PRN Peripheral IV Insertion Adult [OM.PC] Stat 01/16/20 11:45 PRO B-TYPE NATRIUR PEPT,BNPPRO [CHEM] Stat
--- NOTE | 2020-01-16 14:51 | CR ---
Chest: Two views of the chest were obtained. Comparison: Prior chest x-ray of 12/23/19. Heart size and mediastinum are normal. Lungs are clear. Bony structures are unremarkable for the patient's age. Impression: 1. Nothing acute is identified on two-view chest x-ray. Diagnostic code #2 This report was dictated in [place] Standard Time
== END 2020-01-16 13:28 | disposition home or self-care (01) ==
LOC: JD.ED 09:02
DX: J40 Bronchitis, not specified as acute or chronic (principal); M62.838 Other muscle spasm; F17.210 Nicotine dependence, cigarettes, uncomplicated; Z79.899 Other long term (current) drug therapy; Z88.8 Allergy status to other drugs, medicaments and biological substances
CPT/HCPCS: 36415; 71046; 80053; 83880; 85007; 85027; 94640; 96374; 99284; J1885; J7620-GY

== ENCOUNTER 2020-02-09 12:11 | Emergency (ER) | payer OTHER, MEDICAID ==
--- NOTE | 2020-02-09 12:49 | EDM.PDOC ---
ED HPI GENERAL MEDICAL PROBLEM - General Chief Complaint: Respiratory Problem Stated Complaint: CHEST CONGESTION AND COUGH Time Seen by Provider: 02/09/20 12:39 - History of Present Illness INITIAL COMMENTS - FREE TEXT/NARRATIVE: 44-year-old female presents the emergency room with cough and breathing difficulties This is been an ongoing problem since November. She has been using a nebulizer maybe once or twice a day this might help a little bit. She denies fevers. She has been snoring quite a bit this is a long-term problem. It does not sound like she is ever had adequate screening for this they have use the home monitors but they did not read anything. According to the patient she snores loud enough to wake up everybody in the house. She has quite a bit of postnasal drip. Chest Pain Score (Numeric/FACES): 6 - Related Data Allergies Allergy/AdvReac Type Severity Reaction Status Date / Time gabapentin AdvReac Confusion Verified 02/09/20 12:36 Home Meds: Home Meds ALPRAZolam [Xanax] 0.25 mg PO BID PRN 11/25/19 [History] Pregabalin [Lyrica] 150 mg PO BID 11/25/19 [History] Sertraline HCl [Zoloft] 50 mg PO DAILY 11/25/19 [History] Albuterol/Ipratropium [DuoNeb 3.0-0.5 MG/3 ML] 3 ml NEB QID PRN #1 box 01/16/20 [Rx] Cyclobenzaprine [Flexeril] 10 mg PO TID #90 tab 01/16/20 [Rx] Naproxen [Naprosyn] 500 mg PO Q12HR #60 tab 01/16/20 [Rx] Albuterol/Ipratropium [DuoNeb 3.0-0.5 MG/3 ML] 3 ml .XX Q6H #60 neb 02/09/20 [Rx ] Past Medical History HEENT History: Reports: Impaired Vision Cardiovascular History: Reports: Heart Failure, Hypertension Respiratory History: Reports: Asthma, Bronchitis, Recurrent Gastrointestinal History: Reports: Chronic Constipation, Gastritis Genitourinary History: Reports: None 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: Musculoskeletal History: Reports: Arthritis, Back Pain, Chronic Neurological History: Reports: None Psychiatric History: Reports: Anxiety Endocrine/Metabolic History: Reports: Obesity/BMI 30+ Hematologic History: Reports: None Immunologic History: Reports: None Oncologic (Cancer) History: Reports: None Dermatologic History: Reports: None - Infectious Disease History Infectious Disease History: Reports: None - Past Surgical History GI Surgical History: Reports: Colonoscopy, EGD Female Surgical History: Reports: Section Neurological Surgical History: Reports: Lumbar Spine Social & Family History - Family History Family Medical History: Noncontributory Respiratory: Reports: Other (See Below) Other Respiratory Family Hisory: emphysema GI: Reports: Cirrhosis Endocrine/Metabolic: Reports: Diabetes, type II Oncologic: Reports: Colon - Tobacco Use Smoking Status *Q: Current Every Day Smoker Years of Tobacco use: 30 Packs/Tins Daily: 0.5 - Caffeine Use Caffeine Use: Reports: Coffee - Recreational Drug Use Recreational Drug Use: No ED ROS GENERAL - Review of Systems Review Of Systems: See Below Constitutional: Reports: No Symptoms HEENT: Reports: Rhinitis Respiratory: Reports: Shortness of Breath, Cough Cardiovascular: Reports: Dyspnea on Exertion. Denies: Chest Pain, Edema GI/Abdominal: Reports: No Symptoms : Reports: No Symptoms Musculoskeletal: Reports: No Symptoms Skin: Reports: No Symptoms Neurological: Reports: No Symptoms ED EXAM, GENERAL - Physical Exam Exam: See Below Exam Limited By: No Limitations General Appearance: Alert, No Apparent Distress Eye Exam: Bilateral Eye: Normal Inspection Ears: Normal External Exam, Normal Canal, Hearing Grossly Normal, Normal TMs Nose: Normal Inspection, Normal Mucosa, No Blood, Other (Sinus percussion does not cause any discomfort) Throat/Mouth: Normal Inspection, Normal Lips, Normal Teeth, Normal Gums, Normal Oropharynx, Normal Voice, No Airway Compromise Head: Atraumatic, Normocephalic Neck: Normal Inspection, Supple, Non-Tender, Full Range of Motion. No: Lymphadenopathy (L), Lymphadenopathy (R) Respiratory/Chest: No Respiratory Distress, Decreased Breath Sounds, Other (Few coarse breath sounds). No: Crackles, Rales, Rhonchi, Wheezing Cardiovascular: Regular Rate, Rhythm, No Edema, No Murmur Course - Vital Signs Last Recorded V/S: Last Vital Signs Temp 36.5 C 02/09/20 12:33 Pulse 85 02/09/20 12:33 Resp 18 02/09/20 12:33 BP 136/84 02/09/20 12:33 Pulse Ox 99 02/09/20 13:05 - Orders/Labs/Meds Orders: Active Orders 24 hr Category Date Time Status RT Aerosol Therapy [RC] ASDIRECTED Care 02/09/20 13:05 Active Meds: Medications Discontinued Medications Generic Name Dose Route Start Last Admin Trade Name Madonna PRN Reason Stop Dose Admin Albuterol/Ipratropium 3 ml 02/09/20 13:05 02/09/20 13:34 Duoneb 3.0-0.5 Mg/3 Ml NEB 02/09/20 13:06 3 ml ONETIME ONE Administration - Re-Assessments/Exams Free Text/Narrative Re-Assessment/Exam: 02/09/20 14:25 The nebulizer treatment did help with her breathing. Chest x-ray was unremarkable for acute cardiopulmonary changes. This is been an ongoing problem this patient just has a very suspicious history for obstructive sleep apnea and it does not sound like she has had a complete work-up for this. She needs a formal sleep study. She could have obesity hypoventilation syndrome in addition to the underlying problem or is the primary problem. At this point the patient needs to discuss a formal sleep study with her primary provider. At this point she needs to use her DuoNeb's 4 times a day. And if she has not had an echocardiogram this may reveal some issues as well to see if she is developing some pulmonary hypertension. Departure - Departure Time of Disposition: 14:28 Disposition: Home, Self-Care 01 Clinical Impression: Breathing difficulty, Wheezing - Discharge Information Referrals: Jocelin Melendez [employer] [Primary Care Provider] - Forms: ED Department Discharge Additional Instructions: Return to the emergency room with any questions problems or worsening symptoms. Follow-up with your regular provider as soon as you can get in. Discuss a formal sleep study. Discuss an echocardiogram. Use the duo nebs with your nebulizer machine 4 times a day and see if this gets you any improvement over time. Sepsis Event Note - Evaluation Sepsis Screening Result: No Definite Risk - Focused Exam Vital Signs: Vital Signs Temp Pulse Resp BP Pulse Ox Pulse Ox 02/09/20 13:05 99 02/09/20 12:33 36.5 C 85 18 136/84 97 Date Exam was Performed: 02/09/20 Time Exam was Performed: 14:25 - My Orders Last 24 Hours: My Active Orders 02/09/20 13:05 RT Aerosol Therapy [RC] ASDIRECTED - Assessment/Plan Last 24 Hours: My Active Orders 02/09/20 13:05 RT Aerosol Therapy [RC] ASDIRECTED
[2020-02-09] MEDS ORDERED: Albuterol/Ipratropium 3.0-0.5 MG/3 ML Neb Soln NEB ONE (13:05)
--- NOTE | 2020-02-09 14:01 | CR ---
Chest: 2 views of the chest were obtained. Comparison: No prior chest x-ray. Heart size and mediastinum are normal. Lungs are clear with no acute parenchymal change. Bony structures show nothing acute. Impression: 1. Nothing acute is appreciated on 2 view chest x-ray. Diagnostic code #2 This report was dictated in MDT
== END 2020-02-09 15:05 | disposition home or self-care (01) ==
LOC: JD.ED 12:11
DX: R06.2 Wheezing (principal); R06.02 Shortness of breath; I11.0 Hypertensive heart disease with heart failure; I50.9 Heart failure, unspecified; M19.90 Unspecified osteoarthritis, unspecified site; F41.9 Anxiety disorder, unspecified; E66.9 Obesity, unspecified; Z68.41 Body mass index [BMI] 40.0-44.9, adult; F17.210 Nicotine dependence, cigarettes, uncomplicated; Z79.899 Other long term (current) drug therapy; Z88.8 Allergy status to other drugs, medicaments and biological substances
CPT/HCPCS: 71046; 71046-26; 94640; 99283; 99285-25; J7620-GY

== ENCOUNTER 2020-09-16 13:07 | Emergency (ER) | payer MEDICAID ==
[2020-09-16] MEDS ORDERED: Sodium Chloride 0.9% 10 ML Syringe FLUSH PRN ×2 (13:49→15:32)
[2020-09-16] MEDS ORDERED: Ketorolac 30 MG/ML SDV IVPUSH ONE (13:50)
[2020-09-16] MEDS ORDERED: Codeine/Promethazine 10-6.25 MG/5 ML Syrup 5 ML UD Cup PO ONE (13:50)
--- NOTE | 2020-09-16 13:56 | EDM.PDOC ---
ED HPI GENERAL MEDICAL PROBLEM - General Chief Complaint: Respiratory Problem Stated Complaint: SOB,COUGH,VOMITING AND DIARRHEA Time Seen by Provider: 09/16/20 13:32 Source of Information: Reports: Patient, RN Notes Reviewed History Limitations: Reports: No Limitations - History of Present Illness INITIAL COMMENTS - FREE TEXT/NARRATIVE: Patient is a 45-year-old female who presents to the ED for her ongoing respiratory symptoms. The patient notes for the last 2 days, she has had a dry cough, shortness of breath, chest discomfort, abdominal pain due to the cough, back pain due to the coughing, she states she has had some nausea and vomiting along with diarrhea. She is also complaining of a sore throat, along with a runny nose. She did have back surgery 28 days ago, states she was negative for COVID-19 at this time. She states when she coughs it feels like her back is going to explode. She does have a rather tight dry cough while asking her history. She is not had any fevers at home, temperature is 98.4 F. She states she does feel chilled, O2 sats are 99% on room air, pulse is 112 bpm, respiratory rate is 22 breaths/min. She states she has a history of asthma, and bronchitis. She took her inhalers at home, and states this did not help much. Chest Pain Score (Numeric/FACES): 7 - Related Data Allergies Allergy/AdvReac Type Severity Reaction Status Date / Time gabapentin AdvReac Confusion Verified 09/16/20 13:23 Home Meds: Home Meds ALPRAZolam [Xanax] 0.25 mg PO BID PRN 11/25/19 [History] Sertraline HCl [Zoloft] 50 mg PO DAILY 11/25/19 [History] Albuterol/Ipratropium [DuoNeb 3.0-0.5 MG/3 ML] 3 ml NEB QID PRN #1 box 01/16/20 [Rx] Codeine/Promethazine [Phenergan with Codeine] 5 ml PO Q6HR PRN #120 ml 09/16/20 [Rx] Hydrocodone/Acetaminophen [Hydrocodone-Acetamin 10-325 mg] 1 tab PO Q6H PRN 09/16/20 [History] Past Medical History HEENT History: Reports: Impaired Vision Cardiovascular History: Reports: Heart Failure, Hypertension Respiratory History: Reports: Asthma, Bronchitis, Recurrent Gastrointestinal History: Reports: Chronic Constipation, Gastritis RN NURSERY History: Reports: Musculoskeletal History: Reports: Arthritis, Back Pain, Chronic Psychiatric History: Reports: Anxiety, Depression, OCD Endocrine/Metabolic History: Reports: Obesity/BMI 30+ - Past Surgical History GI Surgical History: Reports: Colonoscopy, EGD Female Surgical History: Reports: Section Neurological Surgical History: Reports: Lumbar Spine Social & Family History - Family History Family Medical History: Noncontributory Respiratory: Reports: Other (See Below) Other Respiratory Family Hisory: emphysema GI: Reports: Cirrhosis Endocrine/Metabolic: Reports: Diabetes, type II Oncologic: Reports: Colon - Tobacco Use Tobacco Use Status *Q: Current Every Day Tobacco User Years of Tobacco use: 30 Packs/Tins Daily: 0.2 - Caffeine Use Caffeine Use: Reports: None - Recreational Drug Use Recreational Drug Use: No ED ROS GENERAL - Review of Systems Review Of Systems: Comprehensive ROS is negative, except as noted in HPI. ED EXAM, GENERAL - Physical Exam Exam: See Below Exam Limited By: No Limitations General Appearance: Alert, WD/WN, No Apparent Distress (pt does have a dry cough) Throat/Mouth: Normal Inspection, Normal Lips, Normal Teeth, Normal Gums, Normal Oropharynx (slightly erythematous oropharynx), Normal Voice, No Airway Compromise Head: Atraumatic, Normocephalic Neck: Normal Inspection Respiratory/Chest: No Respiratory Distress, Lungs Clear, Normal Breath Sounds, No Accessory Muscle Use, Chest Non-Tender Cardiovascular: Normal Peripheral Pulses, Regular Rate, Rhythm, No Murmur Extremities: Normal Inspection, Normal Capillary Refill Neurological: Alert, Oriented, Normal Cognition, No Motor/Sensory Deficits Psychiatric: Normal Affect, Normal Mood Skin Exam: Warm, Dry, Intact, Normal Color, No Rash Course - Vital Signs Last Recorded V/S: Last Vital Signs Temp 98.4 F 09/16/20 13:20 Pulse 112 H 09/16/20 13:20 Resp 22 H 09/16/20 13:20 BP 134/90 09/16/20 13:20 Pulse Ox 99 09/16/20 13:20 - Orders/Labs/Meds Orders: Active Orders 24 hr Category Date Time Status Peripheral IV Care [RC] . DIRECTED Care 09/16/20 13:49 Active Ang Chest [CT] Stat Exams 09/16/20 15:28 Ordered Sodium Chloride 0.9% [Normal Saline] 100 ml Med 09/16/20 15:45 Active IV ASDIRECTED Sodium Chloride 0.9% [Saline Flush] Med 09/16/20 13:49 Active 10 ml FLUSH ASDIRECTED PRN Sodium Chloride 0.9% [Saline Flush] Med 09/16/20 15:32 Active 10 ml FLUSH ONETIME PRN Isolation [COMM] Routine Oth 09/16/20 13:48 Ordered Peripheral IV Insertion Adult [OM.PC] Routine Oth 09/16/20 13:49 Ordered Medication Orders Sodium Chloride (Normal Saline) 100 mls @ 60 mls/hr IV ASDIRECTED JEAN-PIERRE Last Admin: 09/16/20 15:52 Dose: 60 mls/hr Documented by: MAURO Sodium Chloride (Saline Flush) 10 ml FLUSH ASDIRECTED PRN PRN Reason: Keep Vein Open Last Admin: 09/16/20 14:12 Dose: 10 ml Documented by: ELPIDIO Sodium Chloride (Saline Flush) 10 ml FLUSH ONETIME PRN PRN Reason: Keep Vein Open Last Admin: 09/16/20 15:52 Dose: 10 ml Documented by: [id number] Labs: Laboratory Tests 09/16/20 09/16/20 09/16/20 Range/Units 14:05 14:05 14:05 WBC 11.36 H (3.98-10.04) K/mm3 RBC 4.47 (3.98-5.22) M/mm3 Hgb 11.7 (11.2-15.7) gm/dl Hct 37.4 (34.1-44.9) % MCV 83.7 (79.4-94.8) fl MCH 26.2 (25.6-32.2) pg MCHC 31.3 L (32.2-35.5) g/dl RDW Std Deviation 42.4 (36.4-46.3) fL Plt Count 351 (182-369) K/mm3 MPV 9.4 (9.4-12.3) fl Neutrophils % (Manual) 67 H (40-60) % Band Neutrophils % 0 (0-10) % Lymphocytes % (Manual) 24 (20-40) % Atypical Lymphs % 0 % Monocytes % (Manual) 8 (2-10) % Eosinophils % (Manual) 0 L (0.7-5.8) % Basophils % (Manual) 1 (0.1-1.2) Platelet Estimate Adequate Plt Morphology Comment Normal Hypochromasia 1+ slight RBC Morph Comment Abnormal PT (9.7-12.0) SECONDS INR APTT (21.7-31.4) SECONDS D-Dimer, Quantitative (0.19-0.50) mg/L Sodium (136-145) mEq/L Potassium (3.5-5.1) mEq/L Chloride (98-107) mEq/L Carbon Dioxide (21-32) mEq/L Anion Gap (5-15) BUN (7-18) mg/dL Creatinine (0.55-1.02) mg/dL Est Cr Clr Drug Dosing mL/min Estimated GFR (MDRD) (>60) mL/min BUN/Creatinine Ratio (14-18) Glucose (74-106) mg/dL Lactic Acid (0.4-2.0) mmol/L Calcium (8.5-10.1) mg/dL Magnesium (1.8-2.4) mg/dl Ferritin (8-252) ng/ml Total Bilirubin (0.2-1.0) mg/dL AST (15-37) U/L ALT (14-59) U/L Alkaline Phosphatase (46-116) U/L Lactate Dehydrogenase (81-234) U/L Troponin I (0.00-0.056) ng/mL C-Reactive Protein 1.4 H* (<1.0) mg/dL NT-Pro-B Natriuret Pep (0-125) pg/mL Total Protein (6.4-8.2) g/dl Albumin (3.4-5.0) g/dl Globulin gm/dL Albumin/Globulin Ratio (1-2) SARS-CoV-2 RNA (JENNIFER) Negative (NEGATIVE) 09/16/20 09/16/20 09/16/20 Range/Units 14:05 14:05 14:05 WBC (3.98-10.04) K/mm3 RBC (3.98-5.22) M/mm3 Hgb (11.2-15.7) gm/dl Hct (34.1-44.9) % MCV (79.4-94.8) fl MCH (25.6-32.2) pg MCHC (32.2-35.5) g/dl RDW Std Deviation (36.4-46.3) fL Plt Count (182-369) K/mm3 MPV (9.4-12.3) fl Neutrophils % (Manual) (40-60) % Band Neutrophils % (0-10) % Lymphocytes % (Manual) (20-40) % Atypical Lymphs % % Monocytes % (Manual) (2-10) % Eosinophils % (Manual) (0.7-5.8) % Basophils % (Manual) (0.1-1.2) Platelet Estimate Plt Morphology Comment Hypochromasia RBC Morph Comment PT 10.3 (9.7-12.0) SECONDS INR 0.96 APTT 23.4 (21.7-31.4) SECONDS D-Dimer, Quantitative 1.30 H (0.19-0.50) mg/L Sodium 142 (136-145) mEq/L Potassium 3.0 L (3.5-5.1) mEq/L Chloride 105 (98-107) mEq/L Carbon Dioxide 24 (21-32) mEq/L Anion Gap 16.0 H (5-15) BUN 8 (7-18) mg/dL Creatinine 0.7 (0.55-1.02) mg/dL Est Cr Clr Drug Dosing 94.01 mL/min Estimated GFR (MDRD) > 60 (>60) mL/min BUN/Creatinine Ratio 11.4 L (14-18) Glucose 91 (74-106) mg/dL Lactic Acid (0.4-2.0) mmol/L Calcium 9.0 (8.5-10.1) mg/dL Magnesium 1.8 (1.8-2.4) mg/dl Ferritin (8-252) ng/ml Total Bilirubin 0.3 (0.2-1.0) mg/dL AST 10 L (15-37) U/L ALT 22 (14-59) U/L Alkaline Phosphatase 67 (46-116) U/L Lactate Dehydrogenase 147 (81-234) U/L Troponin I < 0.017 (0.00-0.056) ng/mL C-Reactive Protein (<1.0) mg/dL NT-Pro-B Natriuret Pep 142 H (0-125) pg/mL Total Protein 7.0 (6.4-8.2) g/dl Albumin 3.4 (3.4-5.0) g/dl Globulin 3.6 gm/dL Albumin/Globulin Ratio 0.9 L (1-2) SARS-CoV-2 RNA (JENNIFER) (NEGATIVE) 09/16/20 09/16/20 Range/Units 14:05 14:05 WBC (3.98-10.04) K/mm3 RBC (3.98-5.22) M/mm3 Hgb (11.2-15.7) gm/dl Hct (34.1-44.9) % MCV (79.4-94.8) fl MCH (25.6-32.2) pg MCHC (32.2-35.5) g/dl RDW Std Deviation (36.4-46.3) fL Plt Count (182-369) K/mm3 MPV (9.4-12.3) fl Neutrophils % (Manual) (40-60) % Band Neutrophils % (0-10) % Lymphocytes % (Manual) (20-40) % Atypical Lymphs % % Monocytes % (Manual) (2-10) % Eosinophils % (Manual) (0.7-5.8) % Basophils % (Manual) (0.1-1.2) Platelet Estimate Plt Morphology Comment Hypochromasia RBC Morph Comment PT (9.7-12.0) SECONDS INR APTT (21.7-31.4) SECONDS D-Dimer, Quantitative (0.19-0.50) mg/L Sodium (136-145) mEq/L Potassium (3.5-5.1) mEq/L Chloride (98-107) mEq/L Carbon Dioxide (21-32) mEq/L Anion Gap (5-15) BUN (7-18) mg/dL Creatinine (0.55-1.02) mg/dL Est Cr Clr Drug Dosing mL/min Estimated GFR (MDRD) (>60) mL/min BUN/Creatinine Ratio (14-18) Glucose (74-106) mg/dL Lactic Acid 1.6 (0.4-2.0) mmol/L Calcium (8.5-10.1) mg/dL Magnesium (1.8-2.4) mg/dl Ferritin 14 (8-252) ng/ml Total Bilirubin (0.2-1.0) mg/dL AST (15-37) U/L ALT (14-59) U/L Alkaline Phosphatase (46-116) U/L Lactate Dehydrogenase (81-234) U/L Troponin I (0.00-0.056) ng/mL C-Reactive Protein (<1.0) mg/dL NT-Pro-B Natriuret Pep (0-125) pg/mL Total Protein (6.4-8.2) g/dl Albumin (3.4-5.0) g/dl Globulin gm/dL Albumin/Globulin Ratio (1-2) SARS-CoV-2 RNA (JENNIFER) (NEGATIVE) Meds: Medications Generic Name Dose Route Start Last Admin Trade Name Freq PRN Reason Stop Dose Admin Sodium Chloride 100 mls @ 60 mls/hr 09/16/20 15:45 09/16/20 15:52 Normal Saline IV 60 mls/hr ASDIRECTED JEAN-PIERRE Administration Sodium Chloride 10 ml 09/16/20 13:49 09/16/20 14:12 Saline Flush FLUSH 10 ml ASDIRECTED PRN Administration Keep Vein Open Sodium Chloride 10 ml 09/16/20 15:32 09/16/20 15:52 Saline Flush FLUSH 10 ml ONETIME PRN Administration Keep Vein Open Discontinued Medications Generic Name Dose Route Start Last Admin Trade Name Freq PRN Reason Stop Dose Admin Iopamidol 100 ml 09/16/20 15:32 09/16/20 15:51 Isovue-370 (76%) IVPUSH 09/16/20 15:33 180 ml ONETIME ONE Administration Ketorolac Tromethamine 30 mg 09/16/20 13:50 09/16/20 14:10 Toradol IVPUSH 09/16/20 13:51 30 mg ONETIME ONE Administration Lorazepam 1 mg 09/16/20 14:46 09/16/20 14:52 Ativan IVPUSH 09/16/20 14:47 1 mg ONETIME ONE Administration Potassium Chloride 40 meq 09/16/20 14:58 09/16/20 15:29 Klor-Con M20 PO 09/16/20 14:59 40 meq ONETIME ONE Administration Promethazine HCl/Codeine 10 ml 09/16/20 13:50 09/16/20 14:11 Phenergan With Codeine PO 09/16/20 13:51 10 ml ONETIME ONE Administration - Re-Assessments/Exams Free Text/Narrative Re-Assessment/Exam: 09/16/20 13:56 Patient presents to the ED for evaluation of her ongoing respiratory symptoms. We will do a COVID-19 swab and a flu swab for today's purposes. I do believe she might be suffering from more of a bronchitis in nature due to her harsh intermittent dry cough. 09/16/20 15:30 The patient's labs have resulted, white blood cell count is mildly elevated 11.36, 67% neutrophils and no bands. Patient's potassium is mildly low at 3.0, CRP mildly elevated at 1.4, D-dimer is elevated at 1.30, troponin is undetectably low, COVID-19 screen at today's visit is negative. At this time we will do a CT of her chest with contrast to rule out the possibility of a pulmonary embolus. 09/16/20 15:38 The patient was reassessed at bedside, she states she is feeling better. Her cough is more intermittent at this time. Not as harsh sounding. I do believe she is suffering more from a bronchitis type issue. She has nebulizers at home. I will provide her with some cough medication. She would like to have the CT of her chest to rule out a pulmonary embolus. But she also states that she had back surgery roughly 1 month ago. Again this is a remote history but I believe a CT should be done to rule out pulmonary embolus. 09/16/20 16:[address] of the patient's chest that was done with contrast shows no evidence of pulmonary embolism. No evidence of aortic dissection. There is mild atelectatic changes within the lung bases. Departure - Departure Time of Disposition: 16:26 Disposition: Home, Self-Care 01 Condition: Good Clinical Impression: Bronchitis - Discharge Information *PRESCRIPTION DRUG MONITORING PROGRAM REVIEWED*: Yes *COPY OF PRESCRIPTION DRUG MONITORING REPORT IN PATIENT KP: No Prescriptions: Codeine/Promethazine [Phenergan with Codeine] 5 ml PO Q6HR PRN #120 ml PRN Reason: Cough Instructions: Acute Bronchitis, Adult, [id number] Referrals: Jocelin Melendez COMMUNITY DEVELOPMENT TECHNICIAN [Primary Care Provider] - Forms: ED Department Discharge Additional Instructions: You have been evaluated in the ED for nausea/vomiting/diarrhea/cough. It is likely that you are suffering from viral illnesses. Your COVID-19 test was negative, your influenza screen was also negative. Laboratory evaluation demonstrated a mildly low potassium, for which you were given oral supplementation. Over the next 24-48 hours please try to limit diet to clear liquids and advance as tolerate to a bland diet to alleviate symptoms of nausea/vomiting/diarrhea. Liquids like Gatorade/Powerade would be sufficient as they have electrolytes that you would need while on the clear liquid diet. You were also given a prescription for a cough medication, please use as directed for further cough symptoms. Please continue your nebulizers as directed, you may use 1 neb every 4 hours for further respiratory issues. I would recommend that you do this while awake throughout the day, to help relieve some of your bronchitis symptoms. Please return to the ED if your symptoms should change or worsen. Sepsis Event Note (ED) - Evaluation Sepsis Screening Result: No Definite Risk - Focused Exam Vital Signs: Vital Signs Temp Pulse Resp BP Pulse Ox 09/16/20 13:20 98.4 F 112 H 22 H 134/90 99 - My Orders Last 24 Hours: My Active Orders 09/16/20 13:48 Isolation [COMM] Routine 09/16/20 13:49 Peripheral IV Care [RC] . DIRECTED Sodium Chloride 0.9% [Saline Flush] 10 ml FLUSH ASDIRECTED PRN Peripheral IV Insertion Adult [OM.PC] Routine 09/16/20 15:28 Ang Chest [CT] Stat 09/16/20 15:32 Sodium Chloride 0.9% [Saline Flush] 10 ml FLUSH ONETIME PRN 09/16/20 15:45 Sodium Chloride 0.9% [Normal Saline] 100 ml IV ASDIRECTED - Assessment/Plan Last 24 Hours: My Active Orders 09/16/20 13:48 Isolation [COMM] Routine 09/16/20 13:49 Peripheral IV Care [RC] . DIRECTED Sodium Chloride 0.9% [Saline Flush] 10 ml FLUSH ASDIRECTED PRN Peripheral IV Insertion Adult [OM.PC] Routine 09/16/20 15:28 Ang Chest [CT] Stat 09/16/20 15:32 Sodium Chloride 0.9% [Saline Flush] 10 ml FLUSH ONETIME PRN 09/16/20 15:45 Sodium Chloride 0.9% [Normal Saline] 100 ml IV ASDIRECTED
[2020-09-16] MEDS ORDERED: LORazepam 2 MG/ML SDV IVPUSH ONE (14:46)
[2020-09-16] MEDS ORDERED: Potassium Chloride 20 MEQ Tab.ER PO ONE (14:58)
[2020-09-16] MEDS ORDERED: Iopamidol 755 Mg/ML 100 ML Bottle IVPUSH ONE (15:32)
[2020-09-16] MEDS ORDERED: Sodium Chloride 0.9% 100 ML IV SCH (15:45)
--- NOTE | 2020-09-17 08:47 | CT ---
"PROCEDURE INFORMATION: Exam: CT Angiography Chest With Contrast Exam date and time: 09/16/2020 3:29 PM Age: 45 years old Clinical indication: Cough and shortness of breath; Patient HX: Elevated d-dimer 1.30, covid test negative, cough/tachycardia/sob TECHNIQUE: Imaging protocol: Computed tomographic angiography of the chest with intravenous contrast. 3D rendering (Not supervised by radiologist): MIP and/or 3D reconstructed images were created by the technologist. Contrast material: ISOVUE 370; Contrast volume: 180 ml; Contrast route: INTRAVENOUS (IV); COMPARISON: DX Chest 2V 02/09/2020 1:16 PM FINDINGS: Pulmonary arteries: No evidence of pulmonary embolism. Bolus timing is insufficient for definitive exclusion of small peripheral pulmonary emboli. Aorta: No evidence of aortic dissection. Lungs: Mild atelectatic changes within the lung bases. Pleural space: Unremarkable. No pneumothorax. No pleural effusion. Heart: Unremarkable. No cardiomegaly. No pericardial effusion. Lymph nodes: There is no evidence of mediastinal or hilar lymphadenopathy. Bones/joints: The thoracic spine demonstrates mild degenerative changes at multiple levels. Soft tissues: Unremarkable. IMPRESSION: 1. No evidence of pulmonary embolism. 2. No evidence of aortic dissection. 3. Mild atelectatic changes within the lung bases. JIMENA GARNER | Final Radiology Report CONFIDENTIALITY STATEMENT This report is intended only for use by the referring physician, and only in accordance with law. If you received this in error, call [phone]. Page 2 of 2 Thank you for allowing us to participate in the care of your patient. Dictated and Authenticated by: Maulik Zapata DO 09/16/2020 5:13 PM Central Time ([place] & [place]) JAVED"
== END 2020-09-16 16:59 | disposition home or self-care (01) ==
LOC: JD.ED 13:07
DX: J40 Bronchitis, not specified as acute or chronic (principal); I11.0 Hypertensive heart disease with heart failure; I50.9 Heart failure, unspecified; E66.9 Obesity, unspecified; F17.210 Nicotine dependence, cigarettes, uncomplicated; Z88.8 Allergy status to other drugs, medicaments and biological substances; Z20.828 Contact with and (suspected) exposure to other viral communicable diseases
CPT/HCPCS: 36415; 71275; 80053; 82728; 83605; 83615; 83735; 83880; 84484; 85007; 85027; 85379; 85610; 85730; 86140; 87635; 87804; 96374; 96375; 99285; A9270; J1885; J2060; Q9967; 99283; U0002

== ENCOUNTER 2021-03-24 22:29 | Emergency (ER) | payer MEDICAID ==
[2021-03-24] MEDS ORDERED: HYDROmorphone 1 MG/ML Syringe IVPUSH ONE ×2 (22:54→23:19)
[2021-03-24] MEDS ORDERED: Ondansetron 4 MG/2 ML SDV IVPUSH ONE (22:54)
[2021-03-24] MEDS ORDERED: Sodium Chloride 0.9% 1,000 ML IV SCH (23:00)
--- NOTE | 2021-03-24 23:02 | EDM.PDOC ---
ED HPI GENERAL MEDICAL PROBLEM - General Chief Complaint: Genitourinary Problem Stated Complaint: SOB VAGINAL PAIN Time Seen by Provider: 03/24/21 22:39 Source of Information: Reports: Patient, Significant Other (Girlfriend) History Limitations: Reports: No Limitations - History of Present Illness INITIAL COMMENTS - FREE TEXT/NARRATIVE: Ms. Frias is a pleasant 45-year-old woman who now presents to the ED stating that she developed sudden-onset sharp suprapubic pain around 22:00 this evening, while urinating. The pain has been waxing and waning, lasting perhaps 2 minutes, then recurring every couple of minutes or so. It does not radiate anywhere. She states that she feels better if she presses on her suprapubic region with her hands, otherwise, she has not identified any modifiers. No associated fever, nausea, vomiting, constipation, diarrhea, dysuria, or urinary frequency. She denies having a similar symptoms previously. Other than her usual medications, which includes 1 tablet of Percocet 10/325 every 6 hours [id number], the patient did not take any medication specifically to treat her pain prior to coming to the ED. Here in the ED, the patient's initial BP is found to be mildly elevated at 147/93, with tachycardia of 108 bpm and tachypnea of 22 rpm. She is afebrile, saturating 95% on room air. She is tearful, and appears to be anxious and in pain. Prior to this evening, the patient denies having a recent fever, chills, sore throat, ear pain, nasal or sinus congestion, cough, dyspnea, chest pain, palpitations, nausea, vomiting, constipation, diarrhea, abdominal pain, urinary symptoms, recent weight gain or weight loss, recent bloody bowel movements or black bowel movements, recent joint aches, headaches, or rashes. I reviewed the PMHx/PSHx/SocHx, which was reviewed with the patient by the RN. The patient's PCP is Jocelin Melendez NP. groin Pain Score (Numeric/FACES): 10 - Related Data Allergies Allergy/AdvReac Type Severity Reaction Status Date / Time gabapentin AdvReac Confusion Verified 03/24/21 22:42 Home Meds: Home Meds ALPRAZolam [Xanax] 0.25 mg PO BID PRN 11/25/19 [History] Sertraline HCl [Zoloft] 50 mg PO DAILY 11/25/19 [History] Albuterol/Ipratropium [DuoNeb 3.0-0.5 MG/3 ML] 3 ml NEB QID PRN #1 box 01/16/20 [Rx] Codeine/Promethazine [Phenergan with Codeine] 5 ml PO Q6HR PRN #120 ml 09/16/20 [Rx] Hydrocodone/Acetaminophen [Hydrocodone-Acetamin 10-325 mg] 1 tab PO Q6H PRN 09/16/20 [History] Past Medical History HEENT History: Reports: Impaired Vision Cardiovascular History: Reports: Heart Failure, Hypertension Respiratory History: Reports: Asthma, Bronchitis, Recurrent Gastrointestinal History: Reports: Chronic Constipation, Gastritis [employer] History: Reports: Musculoskeletal History: Reports: Arthritis, Back Pain, Chronic Psychiatric History: Reports: Anxiety, Depression, OCD Endocrine/Metabolic History: Reports: Obesity/BMI 30+ - Past Surgical History Head Surgeries/Procedures: Reports: None HEENT Surgical History: Reports: None Cardiovascular Surgical History: Reports: None GI Surgical History: Reports: Colonoscopy, EGD Female Surgical History: Reports: Section Neurological Surgical History: Reports: Lumbar Spine Oncologic Surgical History: Reports: None Dermatological Surgical History: Reports: None Social & Family History - Family History Family Medical History: No Pertinent Family History Respiratory: Reports: Other (See Below) Other Respiratory Family Hisory: emphysema GI: Reports: Cirrhosis Endocrine/Metabolic: Reports: Diabetes, type II Oncologic: Reports: Colon - Tobacco Use Tobacco Use Status *Q: Current Every Day Tobacco User Years of Tobacco use: 21 Packs/Tins Daily: 1 - Caffeine Use Caffeine Use: Reports: None - Recreational Drug Use Recreational Drug Use: No ED ROS GENERAL - Review of Systems Review Of Systems: Comprehensive ROS is negative, except as noted in HPI. ED EXAM, RENAL/ - Physical Exam Exam: See Below Exam Limited By: No Limitations General Appearance: Alert, WD/WN, Mild Distress (tearful, appears to be anxious and in pain) Eye Exam: Bilateral Eye: EOMI, Normal Inspection Ears: Normal External Exam, Hearing Grossly Normal Nose: Normal Inspection Throat/Mouth: Normal Inspection, Normal Lips, Normal Voice, No Airway Compromise Head: Atraumatic, Normocephalic Neck: Normal Inspection, Full Range of Motion Respiratory/Chest: No Respiratory Distress, Lungs Clear, Normal Breath Sounds, No Accessory Muscle Use Cardiovascular: Normal Peripheral Pulses, Regular Rate, Rhythm, No Gallop, No JVD, No Murmur, No Rub GI/Abdominal: Normal Bowel Sounds, Soft, No Organomegaly, No Distention, No Abnormal Bruit, No Mass, Tender (Suprapubically only, although palpation may have given relief of her symptoms. Completely nontender elsewhere.) Back Exam: Normal Inspection, Full Range of Motion. No: CVA Tenderness (L), CVA Tenderness (R) Extremities: Normal Inspection, Normal Range of Motion, Normal Capillary Refill Neurological: Alert, Oriented, Normal Cognition, No Motor/Sensory Deficits Psychiatric: Anxious, Tearful Skin Exam: Warm, Dry, Intact, Normal Color, No Rash Course - Vital Signs Last Recorded V/S: Last Vital Signs Temp 36.2 C 03/24/21 22:38 Pulse 108 H 03/24/21 22:38 Resp 22 H 03/24/21 22:38 BP 147/93 H 03/24/21 22:38 Pulse Ox 95 03/24/21 22:38 - Orders/Labs/Meds Orders: Active Orders 24 hr Category Date Time Status Abdomen Pelvis w Cont [CT] Stat Exams 03/25/21 00:35 Taken Transvaginal Non OB [US] Stat Exams 03/24/21 22:54 Taken Sodium Chloride 0.9% [Normal Saline] 1,000 ml Med 03/24/21 23:00 Active IV ASDIRECTED Sodium Chloride 0.9% [Saline Flush] Med 03/25/21 00:40 Active 10 ml FLUSH ONETIME PRN Medication Orders Sodium Chloride (Normal Saline) 1,000 mls @ 150 mls/hr IV ASDIRECTED JEAN-PIERRE Last Admin: 03/24/21 23:00 Dose: 150 mls/hr Documented by: FLOR Sodium Chloride (Sodium Chloride 0.9% 10 Ml Syringe) 10 ml FLUSH ONETIME PRN PRN Reason: Keep Vein Open Last Admin: 03/25/21 01:47 Dose: 10 ml Documented by: RELL Labs: Laboratory Tests 03/24/21 03/24/21 03/24/21 Range/Units 22:58 22:58 23:32 WBC 8.66 (3.98-10.04) K/mm3 RBC 4.92 (3.98-5.22) M/mm3 Hgb 12.2 (11.2-15.7) gm/dl Hct 38.9 (34.1-44.9) % MCV 79.1 L D (79.4-94.8) fl MCH 24.8 L (25.6-32.2) pg MCHC 31.4 L (32.2-35.5) g/dl RDW Std Deviation 49.9 H (36.4-46.3) fL Plt Count 359 (182-369) K/mm3 MPV 9.3 L (9.4-12.3) fl Neutrophils % (Manual) 49 (40-60) % Band Neutrophils % 0 (0-10) % Lymphocytes % (Manual) 41 H (20-40) % Atypical Lymphs % 0 % Monocytes % (Manual) 8 (2-10) % Eosinophils % (Manual) 2 (0.7-5.8) % Basophils % (Manual) 0 L (0.1-1.2) Platelet Estimate Adequate Hypochromasia 1+ slight Anisocytosis 1+ slight RBC Morph Comment Normal Sodium 141 (136-145) mEq/L Potassium 3.5 (3.5-5.1) mEq/L Chloride 105 (98-107) mEq/L Carbon Dioxide 24 (21-32) mEq/L Anion Gap 15.5 H (5-15) BUN 9 (7-18) mg/dL Creatinine 0.8 (0.55-1.02) mg/dL Est Cr Clr Drug Dosing 82.26 mL/min Estimated GFR (MDRD) > 60 (>60) mL/min BUN/Creatinine Ratio 11.3 L (14-18) Glucose 103 (74-106) mg/dL Calcium 8.5 (8.5-10.1) mg/dL Magnesium 2.8 H (1.8-2.4) mg/dl Total Bilirubin 0.2 (0.2-1.0) mg/dL AST 21 (15-37) U/L ALT 27 (14-59) U/L Alkaline Phosphatase 83 (46-116) U/L Total Protein 6.9 (6.4-8.2) g/dl Albumin 3.5 (3.4-5.0) g/dl Globulin 3.4 gm/dL Albumin/Globulin Ratio 1.0 (1-2) Urine Color Light yellow (Yellow) Urine Appearance Clear (Clear) Urine pH 6.5 (5.0-8.0) Ur Specific [place] 1.010 (1.005-1.030) Urine Protein Negative (Negative) Urine Glucose (UA) Negative (Negative) Urine Ketones Negative (Negative) Urine Occult Blood Negative (Negative) Urine Nitrite Negative (Negative) Urine Bilirubin Negative (Negative) Urine Urobilinogen 0.2 (0.2-1.0) Ur Leukocyte Esterase Negative (Negative) Urine RBC Not seen (0-5) /hpf Urine WBC Not seen (0-5) /hpf Ur Squamous Epith Cells 0-5 (0-5) /hpf Urine Bacteria Rare (FEW) /hpf Urine Mucus Not seen (FEW) /hpf Urine HCG, Qual (NEGATIVE) 03/24/21 Range/Units 23:32 WBC (3.98-10.04) K/mm3 RBC (3.98-5.22) M/mm3 Hgb (11.2-15.7) gm/dl Hct (34.1-44.9) % MCV (79.4-94.8) fl MCH (25.6-32.2) pg MCHC (32.2-35.5) g/dl RDW Std Deviation (36.4-46.3) fL Plt Count (182-369) K/mm3 MPV (9.4-12.3) fl Neutrophils % (Manual) (40-60) % Band Neutrophils % (0-10) % Lymphocytes % (Manual) (20-40) % Atypical Lymphs % % Monocytes % (Manual) (2-10) % Eosinophils % (Manual) (0.7-5.8) % Basophils % (Manual) (0.1-1.2) Platelet Estimate Hypochromasia Anisocytosis RBC Morph Comment Sodium (136-145) mEq/L Potassium (3.5-5.1) mEq/L Chloride (98-107) mEq/L Carbon Dioxide (21-32) mEq/L Anion Gap (5-15) BUN (7-18) mg/dL Creatinine (0.55-1.02) mg/dL Est Cr Clr Drug Dosing mL/min Estimated GFR (MDRD) (>60) mL/min BUN/Creatinine Ratio (14-18) Glucose (74-106) mg/dL Calcium (8.5-10.1) mg/dL Magnesium (1.8-2.4) mg/dl Total Bilirubin (0.2-1.0) mg/dL AST (15-37) U/L ALT (14-59) U/L Alkaline Phosphatase (46-116) U/L Total Protein (6.4-8.2) g/dl Albumin (3.4-5.0) g/dl Globulin gm/dL Albumin/Globulin Ratio (1-2) Urine Color (Yellow) Urine Appearance (Clear) Urine pH (5.0-8.0) Ur Specific [place] (1.005-1.030) Urine Protein (Negative) Urine Glucose (UA) (Negative) Urine Ketones (Negative) Urine Occult Blood (Negative) Urine Nitrite (Negative) Urine Bilirubin (Negative) Urine Urobilinogen (0.2-1.0) Ur Leukocyte Esterase (Negative) Urine RBC (0-5) /hpf Urine WBC (0-5) /hpf Ur Squamous Epith Cells (0-5) /hpf Urine Bacteria (FEW) /hpf Urine Mucus (FEW) /hpf Urine HCG, Qual Negative (NEGATIVE) Meds: Medications Generic Name Dose Route Start Last Admin Trade Name Freq PRN Reason Stop Dose Admin Sodium Chloride 1,000 mls @ 150 mls/hr 03/24/21 23:00 03/24/21 23:00 Normal Saline IV 150 mls/hr ASDIRECTED JEAN-PIERRE Administration Sodium Chloride 10 ml 03/25/21 00:40 03/25/21 01:47 Sodium Chloride 0.9% 10 Ml Syringe FLUSH 10 ml ONETIME PRN Administration Keep Vein Open Discontinued Medications Generic Name Dose Route Start Last Admin Trade Name Freq PRN Reason Stop Dose Admin Diatrizoate Meglum/Diatrizoate Sod 40 ml 03/25/21 00:40 03/25/21 01:47 Diatrizoate Meglumine/Diatrizoate Sodium 37% 120 Ml Bottle PO 03/25/21 00:41 40 ml ONETIME ONE Administration Hydromorphone HCl 1 mg 03/24/21 22:54 03/24/21 23:01 Hydromorphone 1 Mg/Ml Syringe IVPUSH 03/24/21 22:55 1 mg ONETIME ONE Administration Hydromorphone HCl 1 mg 03/24/21 23:19 03/24/21 23:24 Hydromorphone 1 Mg/Ml Syringe IVPUSH 03/24/21 23:20 1 mg ONETIME ONE Administration Iopamidol 100 ml 03/25/21 00:40 03/25/21 01:47 Iopamidol 612 Mg/Ml 100 Ml Bottle IVPUSH 03/25/21 00:41 100 ml ONETIME ONE Administration Iopamidol 25 ml 03/25/21 00:41 03/25/21 01:47 Iopamidol 612 Mg/Ml 50 Ml Sdv IVPUSH 03/25/21 00:42 25 ml ONETIME ONE Administration Ondansetron HCl 4 mg 03/24/21 22:54 03/24/21 23:00 Ondansetron 4 Mg/2 Ml Sdv IVPUSH 03/24/21 22:55 4 mg ONETIME ONE Administration - Re-Assessments/Exams Free Text/Narrative Re-Assessment/Exam: 03/24/21 22:56 As above, the patient developed sudden-onset sharp suprapubic pain less than an hour ago as she was urinating. Her pain has been waxing and waning since, and feels a bit better if she presses on her suprapubic region with her hands. On examination, she nodded her head when I pressed on her suprapubic region. I am not sure if it is more tender there, or less painful with palpation. No apparent tenderness elsewhere on her abdomen. She states that her menstrual period is due "any time now", raising the suspicion that her pain is due to an ovarian cyst. I have ordered an evaluation and includes several blood tests, a urinalysis by quick catheter, a urine test, and a transvaginal ultra sound. In the meantime, the patient will be given some IV Dilaudid, IV Zofran, and IV fluid. 03/24/21 23:55 The patient's CBC is unremarkable. Her CMP is remarkable for an anion gap slightly elevated at 15.5, but with a bicarbonate normal at 24, and the remainder of her CMP being unremarkable. Her magnesium level is slightly elevated at 2.8. Her urinalysis is unremarkable. Her urine test is negative. 03/25/21 00:31 Transvaginal ultrasound is read by Cooper as "Nonvisualization of the right ovary. Otherwise, negative examination." 03/25/21 00:35 Test results discussed with the patient and her girlfriend. As above, today's work-up is completely unremarkable, and does not explain the cause of her pain. The patient would like further evaluation. The only test available that might shed further light on the situation would be a CT scan of the abdomen and pelvis with oral and IV contrast. The patient agreed to that. 03/25/21 02:12 CT of the abdomen and pelvis is read by [email or web address] as "No acute findings." 03/25/21 02:16 CT results discussed with the patient and her girlfriend. As above, with a completely negative work-up, I cannot explain the cause of the patient's pain, but I was able to reassure her that it does not appear to be due to anything serious. If her symptoms persist, I would like her to follow-up with her PCP. The patient is agreeable. Departure - Departure Time of Disposition: 02:16 Disposition: Home, Self-Care 01 Condition: Good Clinical Impression: Lower abdominal pain of unknown etiology - Discharge Information *PRESCRIPTION DRUG MONITORING PROGRAM REVIEWED*: Not Applicable *COPY OF PRESCRIPTION DRUG MONITORING REPORT IN PATIENT KP: Not Applicable Referrals: Jocelin Melendez NP [Primary Care Provider] - Forms: ED Department Discharge Additional Instructions: You were seen in the emergency room after developing sudden-onset lower abdominal pain. Work-up in the ER included several blood tests, a urinalysis, a urine test, a transvaginal ultrasound, and a CT of your abdomen and pelvis with oral and IV contrast. Your entire work-up was unremarkable, and does not explain the cause of your pain, however, he can be reassured that it does not appear to be due to anything serious. You do not have a kidney stone or urinary tract infection. We recommend that you take [id number] Tylenol or ibuprofen as needed for discomfort. If your symptoms persist, we recommend you follow-up with your PCP, Jocelin Melendez NP, for further evaluation. If any other problems, please do not hesitate to return to the ER. Sepsis Event Note (ED) - Evaluation Sepsis Screening Result: No Definite Risk - Focused Exam Vital Signs: Vital Signs Temp Pulse Resp BP Pulse Ox 03/24/21 22:38 36.2 C 108 H 22 H 147/93 H 95 - My Orders Last 24 Hours: My Active Orders 03/24/21 22:54 Transvaginal Non OB [US] Stat 03/24/21 23:00 Sodium Chloride 0.9% [Normal Saline] 1,000 ml IV ASDIRECTED 03/25/21 00:35 Abdomen Pelvis w Cont [CT] Stat 03/25/21 00:40 Sodium Chloride 0.9% [Saline Flush] 10 ml FLUSH ONETIME PRN - Assessment/Plan Last 24 Hours: My Active Orders 03/24/21 22:54 Transvaginal Non OB [US] Stat 03/24/21 23:00 Sodium Chloride 0.9% [Normal Saline] 1,000 ml IV ASDIRECTED 03/25/21 00:35 Abdomen Pelvis w Cont [CT] Stat 03/25/21 00:40 Sodium Chloride 0.9% [Saline Flush] 10 ml FLUSH ONETIME PRN
[2021-03-25] MEDS ORDERED: Sodium Chloride 0.9% 10 ML Syringe FLUSH PRN (00:40)
[2021-03-25] MEDS ORDERED: Iopamidol 612 MG/ML 100 ML Bottle IVPUSH ONE (00:40)
[2021-03-25] MEDS ORDERED: Diatrizoate Meglumine/Diatrizoate Sodium 37% 120 ML Bottle PO ONE (00:40)
[2021-03-25] MEDS ORDERED: Iopamidol 612 MG/ML 50 ML SDV IVPUSH ONE (00:41)
--- NOTE | 2021-03-25 08:15 | CT ---
CT abdomen and pelvis Technique: Multiple axial sections were obtained from above the dome of the diaphragm inferiorly through the pubic symphysis. Intravenous and oral contrast was utilized. Delayed images were also obtained to the bladder. Reconstructed coronal and sagittal images were obtained. Comparison: No prior CT abdomen or pelvis study, prior pelvic ultrasound performed earlier on the same day (11:19 PM). Abdominal x-ray of 09/24/19 is also available. Findings: Visualized lung bases show nothing acute. Liver contains no focal abnormality. Spleen appears within normal limits. Adrenal glands show no nodule. No abnormality is appreciated within the pancreas. Gallbladder contains no calcified gallstone. Kidneys show symmetric contrast enhancement with no hydronephrosis or mass being seen. Abdominal aorta shows no aneurysm. No retroperitoneal adenopathy or mesenteric abnormalities are seen. Appendix is seen which is normal in size. No pelvic mass or adenopathy is appreciated. No bowel dilatation is seen. Delayed images show contrast within the distal ureters and within the bladder. Bone window settings were reviewed which show mild degenerative change within the lower thoracic spine and lower lumbar spine. Previous surgery within the lower lumbar spine is noted. No acute osseous abnormality is appreciated. Impression: 1. Chronic findings as noted above. 2. Nothing acute is identified on CT study of the abdomen and pelvis. Diagnostic code #2 I agree with preliminary report from [facility], finalized on 03/25/21, 3:07 AM CDT, code 1
--- NOTE | 2021-03-25 08:36 | US ---
Pelvic ultrasound: Multiple real-time images of the pelvis were obtained transabdominally and transvaginally. Comparison: No prior pelvic ultrasound is available. Technologist's note: Very difficult due to body habitus and bowel gas. Findings: Uterus is retroverted. No discrete myometrial abnormality is appreciated. Endometrial thickness is 1.2 cm. No free fluid is seen. Right ovary is not visualized. Left ovary appears within normal limits without larger cyst or solid abnormality. Measurements: Left ovary: 3.5 x 2.4 x 1.5 cm Uterus: Length 9.3 cm, AP height 6.3 cm, transverse width 6.5 cm Impression: 1. Nonvisualized right ovary. 2. Other portions of the pelvic ultrasound show no discrete abnormality. Diagnostic code #2 I agree with preliminary report from [facility], finalized on 03/25/21, 1:29 AM CDT, code 1
== END 2021-03-25 02:27 | disposition home or self-care (01) ==
LOC: JD.ED 22:29
DX: R10.30 Lower abdominal pain, unspecified (principal); I11.0 Hypertensive heart disease with heart failure; I50.9 Heart failure, unspecified; J45.909 Unspecified asthma, uncomplicated; E66.9 Obesity, unspecified; Z88.8 Allergy status to other drugs, medicaments and biological substances; Z68.43 Body mass index [BMI] 50.0-59.9, adult; Z72.0 Tobacco use; Z79.899 Other long term (current) drug therapy
CPT/HCPCS: 36415; 74177; 76830; 80053; 81001; 81025; 83735; 85007; 85027; 96374; 96375; 99284; J1170; J2405; J7030; Q9963; Q9967